=== PATIENT | male | born 1950 | race Caucasian/White ===

== ENCOUNTER 2017-08-29 16:15 | Inpatient (IN) ==
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
[2017-08-29] MEDS ORDERED: Piperacillin/Tazobactam 3.375 GM in 0.9 % Sodium Chloride Mini Bag 100 ML IVPB ONE (16:51)
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
[2017-08-29 17:39] LABS: Basophils % 0.5 %; Eosinophils # 0.4 K/mcL (0.0-0.6); Eosinophils % 4.4 %; Hematocrit 37.1 % (37.5-50.1); Immature Granulocytes % 0.3 % (0-4); Lymphocytes # 1.3 K/mcL (0.6-4.6); Lymphocytes % 14.9 %; Mean Corpuscular Hemoglobin 30.5 pg (28.0-33.3); Mean Corpuscular Volume 87.1 fL (83.0-100.0); Mean Platelet Volume 9.8 fL (9.4-12.4); Monocytes # 0.6 K/mcL (0.0-1.3); Monocytes % 6.3 %; Neutrophils # 6.4 K/mcL (1.6-8.9); Platelet Count 225 K/mcL (140-400); Red Blood Count 4.26 M/mcL (4.19-5.50); Red Cell Distribution Width 11.5 % (11.5-14.5); Segmented Neutrophils % 73.6 %
[2017-08-29 17:45] LABS: INR 1.1; Prothrombin Time 12.1 Seconds (9.4-12.1)
[2017-08-29 17:48] LABS: Activated Partial Thrombo Time 27.9 Seconds (26.0-36.0)
[2017-08-29 18:03] LABS: BUN/Creatinine Ratio 30 (6-26); Blood Urea Nitrogen 16 mg/dL (8-23); Carbon Dioxide 23 mEq/L (23-29); Chloride 102 mEq/L (98-107); Glucose 127 mg/dL (70-105); Osmolality,Calculated 279 (280-300); Potassium 4.2 mEq/L (3.5-5.1); Sodium 133 mEq/L (136-145); eGFR For African Americans > 60 (> 60); eGFR For Non-African Americans > 60 (> 60)
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
[2017-08-29] MEDS ORDERED: Naloxone 0.4 MG/ML INJ IVP PRN (21:46)
[2017-08-30] MEDS: 0.9 % Sodium Chloride 1,000 ML IVC SCH ×2 (00:14→11:01)
[2017-08-30] MEDS: Piperacillin/Tazobactam 3.375 GM in 0.9 % Sodium Chloride Mini Bag 100 ML IVPB SCH ×2 (00:14→09:01)
[2017-08-30 05:02] LABS: Basophils % 0.2 %; Eosinophils # 0.4 K/mcL (0.0-0.6); Hematocrit 35.3 % (37.5-50.1); Hemoglobin 12.6 g/dL (12.9-16.9); Immature Granulocytes % 0.5 % (0-4); Lymphocytes # 1.1 K/mcL (0.6-4.6); Lymphocytes % 12.9 %; Mean Corpuscular HGB Conc 35.7 g/dL (31.6-35.5); Mean Corpuscular Hemoglobin 31.4 pg (28.0-33.3); Mean Platelet Volume 9.9 fL (9.4-12.4); Monocytes # 0.4 K/mcL (0.0-1.3); Monocytes % 5.2 %; Neutrophils # 6.2 K/mcL (1.6-8.9); Platelet Count 218 K/mcL (140-400); Red Blood Count 4.01 M/mcL (4.19-5.50); Red Cell Distribution Width 11.2 % (11.5-14.5); Segmented Neutrophils % 76.2 %
[2017-08-30 05:11] LABS: Bilirubin,Urine Negative (Negative); Blood,Urine Negative (Negative); Clarity,Urine Clear (Clear); Color,Urine Yellow (Yellow); Glucose,Urine (UA) 100 mg/dL (Normal); Ketones,Urine Negative (Negative); Leukocyte Esterase,Urine Negative (Negative); Nitrite,Urine Negative (Negative); PH,Urine 6.5 pH Units (5.0-8.0); Protein,Urine Negative (Neg-Trace); Specific Gravity,Urine 1.023 (1.010-1.025); Urobilinogen,Urine Normal (Normal)
[2017-08-30 05:22] LABS: Alanine Aminotransferase 14 Units/L (7-52); Albumin 3.2 g/dL (3.5-5.7); Alkaline Phosphatase 54 Units/L (34-104); Aspartate Amino Transferase 10 Units/L (13-39); BUN/Creatinine Ratio 24 (6-26); Bilirubin,Total 0.6 mg/dL (0.3-1.0); Blood Urea Nitrogen 14 mg/dL (8-23); Calcium 8.6 mg/dL (8.6-10.3); Carbon Dioxide 23 mEq/L (23-29); Chloride 103 mEq/L (98-107); Chol/HDL Ratio 3.1 (0-4.9); Cholesterol 138 mg/dL (< 200); Globulin 3.1 g/dL (2.4-3.5); Glucose 143 mg/dL (70-105); HDL Cholesterol 44 mg/dL (40-59); LDL Cholesterol,Calculated 75 mg/dL (0-99); Magnesium 1.9 mg/dL (1.6-2.6); Osmolality,Calculated 281 (280-300); Phosphorous 3.4 mg/dL (2.7-4.5); Potassium 4.1 mEq/L (3.5-5.1); Sodium 134 mEq/L (136-145); Total Protein 6.3 g/dL (6.4-8.9); Triglycerides 93 mg/dL (< 150); eGFR For African Americans > 60 (> 60); eGFR For Non-African Americans > 60 (> 60)
[2017-08-30] MEDS ORDERED: Dextrose Gel 15 GM/37.5 ML TUBE PO PRN ×6 (06:27→23:28)
[2017-08-30] MEDS ORDERED: D5% in Water 1,000 ML IVC PRN ×3 (06:27→23:28)
[2017-08-30] MEDS ORDERED: *HR* Dextrose 50 % in Water (Syg) 50 ML SYRINGE IVP PRN ×3 (06:27→23:28)
[2017-08-30] MEDS ORDERED: Insulin LISPRO 300 UNITS/3 ML VIAL SQ SCH ×3 (07:30→21:00)
--- NOTE | 2017-08-30 10:46 | Internal Med Progress Note ---
Date of Encounter: 08/30/17 Time of Encounter: 10:42 - Assessment and plan (1) Osteomyelitis Current Visit: Yes Status: Acute Assessment and plan: ASSESSMENT: - Fing pain due to osteo-myelitis as seen on PLAN: -Blood cx x 2 - follow up -Tylenol 650 mg PO q 4-6 hr PRN pain/fever - Possible for surgery/amputation today. - Continue Vancomycin and Zosyn. Consider ID consult post-op. - Patient denies CP, SOB, n/v, diaphresis, numbness tingling. - Stress test recently on 08/26/17 was negative for ischemia, EF was 49% - Based on recent recommendations of patient being asymptomatic, he is clear for surgery. Qualifiers: Osteomyelitis type: unspecified type Osteomyelitis location: hand Laterality: right Qualified Code(s): M86.9 - Osteomyelitis, unspecified (2) Anemia Current Visit: Yes Status: Acute Assessment and plan: Stable Qualifiers: Anemia type: unspecified type Qualified Code(s): D64.9 - Anemia, unspecified (3) Hypertension Current Visit: Yes Status: Acute Assessment and plan: Continue home medications when patient tolerating diet. Qualifiers: Hypertension type: essential hypertension Qualified Code(s): I10 - Essential (primary) hypertension (4) Hyperlipidemia Current Visit: Yes Status: Acute Assessment and plan: we will continue home med when patient tolerating PO Qualifiers: Hyperlipidemia type: unspecified Qualified Code(s): E78.5 - Hyperlipidemia , unspecified (5) Diabetes Current Visit: Yes Status: Acute Assessment and plan: ISS while NPO Qualifiers: Diabetes mellitus type: type 2 Diabetes mellitus jail insulin use: unspecified jail insulin use status Diabetes mellitus complication status : with unspecified complications Qualified Code(s): E11.8 - Type 2 diabetes mellitus with unspecified complications (6) DVT prophylaxis Current Visit: Yes Status: Acute Assessment and plan: SCD - Time Spent With Patient Total time spent is greater than 50% in coordination of care (as documented) at patient's floor/unit and/or counseling patient: - Subjective Interval history: No acute events Patient states finger pain is 6/10. Denies fevers/chills, n/v - Constitutional Vitals: Temp Pulse Resp BP Pulse Ox 98.2 F 59 15 127/69 97 08/30/17 10:18 08/30/17 10:18 08/30/17 10:18 08/30/17 10:18 08/30/17 10:18 General appearance: Present: A&O X 3 Exam: - Head Head exam: Present: atraumatic, normocephalic - Respiratory Respiratory exam: Present: CTAB. Absent: accessory muscle use, rales, rhonchi, wheezes - Cardiovascular Cardiovascular exam: Present: RRR, +S1, +S2. Absent: diastolic murmur, gallop, rubs, systolic murmur - GI/Abdominal GI/Abdominal exam: Present: normal bowel sounds, soft, no peritoneal signs. Absent: distended, tenderness - Extremities Exam Extremities exam: Present: warm, radial pulses palpable and symmetrical. Absent : calf tenderness, cyanotic, pedal edema Right middle finger has clean dressing, limited exam, hand edema noted, no discharge. Internal Medicine: Result - Labs CBC & Chem 7: 08/30/17 04:49 08/30/17 04:49 Labs: Short CBC 08/30/17 Range/Units 04:49 WBC 8.2 (4.3-11.1) K/mcL Hgb 12.6 L (12.9-16.9) g/dL Hct 35.3 L (37.5-50.1) % Plt Count 218 (140-400) K/mcL Neutrophils # 6.2 (1.6-8.9) K/mcL BMP 08/30/17 04:49 Sodium 134 L Potassium 4.1 Chloride 103 Carbon Dioxide 23 BUN 14 Creatinine 0.58 L Glucose 143 H Calcium 8.6 Liver Function 08/30/17 Range/Units 04:49 Total Bilirubin 0.6 (0.3-1.0) mg/dL AST 10 L (13-39) Units/L ALT 14 (7-52) Units/L Alkaline Phosphatase 54 (34-104) Units/L Albumin 3.2 L (3.5-5.7) g/dL Urine 08/30/17 Range/Units 04:56 Urine Color Yellow (Yellow) Urine Clarity Clear (Clear) Urine pH 6.5 (5.0-8.0) pH Units Ur Specific [place] 1.023 (1.010-1.025) Urine Protein Negative (Neg-Trace) mg/dL Urine Glucose (UA) 100 H (Normal) mg/dL - ABG Interpretation ABG results: PT/INR, D-dimer PT 12.1 Seconds (9.4-12.1) 08/29/17 17:23 Consult Discharge Plan - Plan Referrals: [facility] [Outside]
[2017-08-30 11:02] LABS: Estimated Average Glucose 143 mg/dl; Hemoglobin A1C 6.6 %
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
[2017-08-30 14:48] LABS: Acinetobacter baumannii by PCR Not Detected (Not Detect); Candida albicans by PCR Not Detected (Not Detect); Candida glabrata by PCR Not Detected (Not Detect); Candida krusei by PCR Not Detected (Not Detect); Candida parapsilosis by PCR Not Detected (Not Detect); Candida tropicalis by PCR Not Detected (Not Detect); Enterococcus by PCR Not Detected (Not Detect); Escherichia coli by PCR Not Detected (Not Detect); Klebsiella oxytoca by PCR Not Detected (Not Detect); Klebsiella pneumoniae by PCR Not Detected (Not Detect); Pseudomonas aeruginosa by PCR Not Detected (Not Detect); Serratia marcescens by PCR Not Detected (Not Detect); Staphylococcus aureus by PCR ***DETECTED*** (Not Detect); Streptococcus agalactiae(B)PCR Not Detected (Not Detect); Streptococcus by PCR Not Detected (Not Detect); Streptococcus pneumoniae PCR Not Detected (Not Detect); Streptococcus pyogenes (A) PCR Not Detected (Not Detect); blaKPC Carbapenem-Resist Gene Not Detected (Not Detect); mecA Methicillin-Resist Gene Not Detected (Not Detect); vanA/B Vancomycin-Resist Genes Not Detected (Not Detect)
--- NOTE | 2017-08-30 16:39 | Anesthesia Evaluation PreOp ---
Date of Encounter: 08/30/17 Time of Encounter: 16:33 - Past History Planned Operation: Right Middle finger Amputation Cardiac History: Denies any Significant Hx (coronary artery disease, diabetes, GERD, hyperlipidemia, hypertension, other Psychiatric history: no psych history - Past Surgical History Surgical History: colostomy - Social History Smoking Status: Never smoker Alcohol use: none Drug use: none), HTN, Hyperlipidemia, Cardiac Stent (x2 05/2016) Pulmonary History: Denies Any Significant HX TEACHER History: Denies Any Significant HX Other Medical History: Diabetes Type II, GERD, Other (Diabetic Peripheral Neuropathy) Anesthesia History: Past Anesthesia (Colostomy) Alcohol Use: none Drug use: none Medications and Allergies Aspirin [Lo-Dose Aspirin EC] 81 mg PO DAILY 08/29/17 [History] Cholecalciferol (D-3) [Vitamin D] 1,000 unit PO DAILY 08/29/17 [History] Clopidogrel [Plavix] 75 mg PO DAILY 08/29/17 [History] Gabapentin [Neurontin] 300 mg PO TID 08/29/17 [History] Lisinopril [Zestril] 40 mg PO DAILY 08/29/17 [History] Metoprolol [Lopressor] 25 mg PO DAILY 08/29/17 [History] Simvastatin [Zocor] 80 mg PO HS 08/29/17 [History] metFORMIN [Glucophage] 1,000 mg PO BIDWM 08/29/17 [History] 3 Allergy/AdvReac Type Severity Reaction Status Date / Time atorvastatin Allergy Rash Verified 08/29/17 17:09 - Meds/Allergy Pre-op Review Medications Reviewed: Yes Allergies Reviewed: Yes Beta Blockers on Current Med List: No Anesthesia Results - Labs 08/30/17 04:49 08/30/17 04:49 08/26/17 Stress EF-49% No ischemia - Imaging EKG: report reviewed (NSR on stress) Anesthesia Exam Vital Signs/O2 Sat, Most Current Temp Pulse Resp BP Pulse Ox 99.1 F 72 15 134/70 97 08/30/17 14:07 08/30/17 14:07 08/30/17 14:07 08/30/17 14:07 08/30/17 14:07 NPO (# of Hours): > 8 hrs Pain Scale: 0 Pain Scale Used: Numeric (1 - 10) - HEENT Pupil (Motor): Pupils equal, EOMI Mallampati: II Teeth: Missing Denture Type: Upper: Complete Oral Opening: Greater than 3 - TEACHER LOC: Oriented TEACHER Motor: Normal RUE, Normal LUE, Normal RLE, Normal LLE, Normal Face TEACHER Sensory: Normal: RUE, LUE, RLE, LLE, Face - Cardiac Rhythm: Regular Murmur: None JVD: No Carotid Bruit: No - Pulmonary Breath Sounds: bilateral Clear Respiratory Effort: Symmetrical Anesthesia Assess/Plan ASA Score: 3 Modified [place]ourt Scale for Level of Consciousness: Cooperative, oriented, and tranquil Anesthetic Plan: General Autologous Blood: Yes Monitoring Plan: Standard Monitors Recovery Plan: PACU
[2017-08-30] MEDS ORDERED: *HR* FentaNYL (PF) 100 MCG/2 ML VIAL ONE ×2 (16:54→18:01)
[2017-08-30] MEDS ORDERED: Dexamethasone 4 MG/ML VIAL ONE (16:54)
[2017-08-30] MEDS ORDERED: Ondansetron 4 MG/2 ML VIAL ONE (16:54)
[2017-08-30] MEDS ORDERED: Lidocaine -MPF 2% 2 ML VIAL ONE (16:54)
[2017-08-30] MEDS ORDERED: *HR* Midazolam HCl 2 MG/2 ML VIAL ONE (16:55)
[2017-08-30] MEDS ORDERED: *HR* Propofol 200 MG/20 ML VIAL IVP ONE (16:55)
[2017-08-30] MEDS ORDERED: Lidocaine -MPF 4% 5 ML AMPUL ONE (16:58)
--- NOTE | 2017-08-30 17:02 | Electrocardiograph Report ---
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
[2017-08-30] MEDS ORDERED: *HR* OxyCODONE Immed Rel 5 MG TABLET PO PRN (18:03)
[2017-08-30] MEDS ORDERED: *HR* HYDROmorphone (PF) 1 MG/ML SYRINGE IVP PRN (18:03)
[2017-08-30] MEDS ORDERED: Ringers Solution, Lactated 1,000 ML IVC SCH (18:15)
[2017-08-30] MEDS ORDERED: *HR* Metoprolol 5 MG/5 ML VIAL IVP ONE (18:16)
--- NOTE | 2017-08-30 18:35 | Anesthesia Evaluation Post Op ---
Date of Encounter: 08/30/17 Time of Encounter: 18:34 - Vital Signs Vital Signs: Vital Signs/O2 Sat, Most Current Temp Pulse Resp BP Pulse Ox 97.2 F L 58 12 138/69 99 08/30/17 18:11 08/30/17 18:31 08/30/17 18:31 08/30/17 18:31 08/30/17 18:31 - Lungs Lungs: Clear Ascult./Percussion - Airway Airway: Non-obstructed - Cardiovascular Regular Rate - Mental Status Mental Status: Alert & Oriented, Answers Appropriately - Pain Pain Scale: 0 Pain Scale used: Numeric (1 - 10) - Nausea Vomiting Nausea Vomiting: Not Present - Hydration Hydration: NPO, Has not voided - Discharge PostOp Status: Transfer Patient to floor
[2017-08-30] MEDS ORDERED: Naloxone 0.4 MG/ML INJ IVP PRN (19:26)
[2017-08-30] MEDS: *HR* OxyCODONE Immed Rel 5 MG TABLET PO PRN (21:37)
[2017-08-30] MEDS: Gabapentin 300 MG CAPSULE PO SCH (21:37)
[2017-08-31] MEDS ORDERED: Insulin LISPRO 300 UNITS/3 ML VIAL SQ SCH
[2017-08-31] MEDS: Piperacillin/Tazobactam 3.375 GM in 0.9 % Sodium Chloride Mini Bag 100 ML IVPB SCH ×3 (01:13→16:30)
[2017-08-31 05:47] LABS: Basophils % 0.3 %; Eosinophils # 0.5 K/mcL (0.0-0.6); Eosinophils % 6.1 %; Hematocrit 37.8 % (37.5-50.1); Hemoglobin 13.1 g/dL (12.9-16.9); Immature Granulocytes % 0.4 % (0-4); Lymphocytes # 0.8 K/mcL (0.6-4.6); Lymphocytes % 10.4 %; Mean Corpuscular HGB Conc 34.7 g/dL (31.6-35.5); Mean Corpuscular Hemoglobin 30.6 pg (28.0-33.3); Mean Corpuscular Volume 88.3 fL (83.0-100.0); Mean Platelet Volume 9.8 fL (9.4-12.4); Monocytes # 0.4 K/mcL (0.0-1.3); Monocytes % 4.9 %; Neutrophils # 5.9 K/mcL (1.6-8.9); Platelet Count 251 K/mcL (140-400); Red Blood Count 4.28 M/mcL (4.19-5.50); Red Cell Distribution Width 11.5 % (11.5-14.5); Segmented Neutrophils % 77.9 %
[2017-08-31 06:04] LABS: BUN/Creatinine Ratio 19 (6-26); Blood Urea Nitrogen 13 mg/dL (8-23); C-Reactive Protein 72 mg/L (Less than 10); Calcium 8.4 mg/dL (8.6-10.3); Carbon Dioxide 24 mEq/L (23-29); Chloride 102 mEq/L (98-107); Glucose 167 mg/dL (70-105); Osmolality,Calculated 278 (280-300); Potassium 4.4 mEq/L (3.5-5.1); Sodium 132 mEq/L (136-145); eGFR For African Americans > 60 (> 60); eGFR For Non-African Americans > 60 (> 60)
[2017-08-31] MEDS: Insulin LISPRO 300 UNITS/3 ML VIAL SQ SCH ×4 (07:39→21:13)
[2017-08-31] MEDS ORDERED: *HR* Metformin 500 MG TABLET PO SCH (08:00)
[2017-08-31] MEDS: Cholecalciferol (D-3) 1,000 UNIT TABLET PO SCH (10:14)
[2017-08-31] MEDS: Aspirin Enteric Coated 81 MG Tablet PO SCH (10:15)
[2017-08-31] MEDS: Gabapentin 300 MG CAPSULE PO SCH ×3 (10:15→20:48)
[2017-08-31] MEDS: Lisinopril 20 MG TABLET PO SCH (10:15)
[2017-08-31] MEDS: *HR* OxyCODONE Immed Rel 5 MG TABLET PO PRN (10:17)
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
--- NOTE | 2017-08-31 12:59 | Orthopedics Progress Note ---
Date of Encounter: 08/31/17 Time of Encounter: 12:20 - Assessment and Plan (1) Osteomyelitis Current Visit: Yes Status: Acute POD#1 - s/p right long finger amputation 08/30/17 Leave postop dressings intact until follow up visit in office at [facility]. Patient did have 1/2 positive blood cultures with staph aureus ID following for antibiotic guidance. Continue to elevate hand, ROM as tolerated. Will follow up with Sheron Harmon PA-C in [facility] office on on 09/07/17 at 1:00pm. Qualifiers: Osteomyelitis type: unspecified type Osteomyelitis location: hand Laterality: right Qualified Code(s): M86.9 - Osteomyelitis, unspecified Subjective Principal diagnosis: POD#1 s/p right long finger amputation 08/30/17 Interval history: Patient doing well today with no concerns at this time. Minimal pain to surgical hand. Objective Vital signs: Vital Signs Temp Pulse Resp BP Pulse Ox 08/31/17 09:00 98.0 F 69 16 150/76 97 08/31/17 06:56 98.3 F 70 16 127/76 96 08/31/17 04:22 100.1 F H 72 16 137/67 94 08/30/17 21:50 71 138/69 98 08/30/17 21:30 96 08/30/17 20:50 69 137/66 98 08/30/17 19:50 60 145/68 98 08/30/17 19:20 73 138/69 96 08/30/17 18:50 97.9 F 62 18 150/77 96 08/30/17 18:41 97.5 F L 58 12 139/72 99 08/30/17 18:31 58 12 138/69 99 08/30/17 18:21 58 12 141/68 98 08/30/17 18:11 97.2 F L 64 14 140/69 98 08/30/17 14:07 99.1 F 72 15 134/70 97 Intake and Output 08/30/17 08/31/17 08/31/17 23:59 07:59 15:59 Intake Total 100 / 100 480 / 480 Output Total 460 / 460 700 / 700 Balance -460 / -460 -600 / -600 480 / 480 Intake: IV Fluids 100 / 100 Zosyn 3.375 GM In 0.9 % Sodium 100 / 100 Chloride (Mini-Bag +) 100 ML @ 25 mls/hr IVPB Q8HR [facility] Rx#: [id number] Oral 0 / 0 480 / 480 Output: Urine 450 / 450 700 / 700 Estimated Blood Loss Other: Meal Breakfast Percent of Meal Consumed 100% Weight 100.3 kg Blood Glucose* 112 138 191 Patient Weight 08/31/17 23:59 Weight 100.3 kg Incision: clean and dry (postop dressings intact to right hand. good motion of exposed fingers with brisk cap refill, continued decreased sensation to fingers) - Labs CBC & BMP: 08/31/17 05:20 08/31/17 05:20 Labs: Abnormal lab results ESR 53 mm/hr (0-10) H 08/31/17 05:20 Sodium 132 mEq/L (136-145) L 08/31/17 05:20 Creatinine 0.67 mg/dL (0.70-1.30) L 08/31/17 05:20 Glucose 167 mg/dL (70-105) H 08/31/17 05:20 POC Glucose 191 mg/dL (70-99) H 08/31/17 12:09 Hemoglobin A1c 6.6 % (-5.6) H 08/30/17 06:27 Calculated Osmolality 278 (280-300) L 08/31/17 05:20 Calcium 8.4 mg/dL (8.6-10.3) L 08/31/17 05:20 AST 10 Units/L (13-39) L 08/30/17 04:49 C-Reactive Protein 72 mg/L (Less than 10) H 08/31/17 05:20 Serum Total Protein 6.3 g/dL (6.4-8.9) L 08/30/17 04:49 Albumin 3.2 g/dL (3.5-5.7) L 08/30/17 04:49 Albumin/Globulin Ratio 1.0 (1.1-2.2) L 08/30/17 04:49 Urine Glucose (UA) 100 mg/dL (Normal) H 08/30/17 04:56 Staphylococcus sp PCR DETECTED (Not Detect) A 08/29/17 17:20 Staph aureus (PCR) DETECTED (Not Detect) A 08/29/17 17:20 - VTE Documentation of Mechanical Device: Intermittent pneumatic compression device Consult Discharge Plan - Plan Referrals: [facility] [Outside] Sheron Harmon, PAC [Physician Accountant Property] - 09/07/17 1:00 pm
--- NOTE | 2017-08-31 16:33 | Internal Med Progress Note ---
Date of Encounter: 08/31/17 Time of Encounter: 16:31 - Assessment and plan (1) Osteomyelitis Current Visit: Yes Status: Acute Assessment and plan: OM secondary to infection of right long finger. S/p amputation on 08/30. Patient clinically doing well. Vital signs are stable and he is afebrile. He has no leukocytosis. 08/29 blood cultures and Repeat blood cultures from 08/30 also showed GPC - note these samples were obtained prior to finger amputation. Will d/w ID at what point to repeat blood cultures. - ID consulted, recommendations appreciated. - Follow-up sensitivities. - Continue Ancef 2,000 mg Q8H. Qualifiers: Osteomyelitis type: unspecified type Osteomyelitis location: hand Laterality: right Qualified Code(s): M86.9 - Osteomyelitis, unspecified (2) Anemia Current Visit: Yes Status: Acute Assessment and plan: Stable Qualifiers: Anemia type: unspecified type Qualified Code(s): D64.9 - Anemia, unspecified (3) Hypertension Current Visit: Yes Status: Chronic Assessment and plan: Continue home medications. Qualifiers: Hypertension type: essential hypertension Qualified Code(s): I10 - Essential (primary) hypertension (4) Hyperlipidemia Current Visit: Yes Status: Chronic Assessment and plan: Continue home medications. 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 Denies fevers/chills, n/v. I was recently informed by nursing that the repeat set of blood cultures positive for GPC. - Constitutional Vitals: Temp Pulse Resp BP Pulse Ox 98.3 F 69 15 108/56 97 08/31/17 14:25 08/31/17 14:25 08/31/17 14:25 08/31/17 14:25 08/31/17 14:25 General appearance: Present: A&O X 3 - Head Head exam: Present: atraumatic, normocephalic - Eye Eye exam: Present: PERRL, conjuntiva pink, sclera anicteric Pupils: Present: PERRL - Neck Neck exam general surgery: Present: supple, trachea midline. Absent: lymphadenopathy - Respiratory Respiratory exam: Present: CTAB. Absent: accessory muscle use, rales, rhonchi, wheezes - Cardiovascular Cardiovascular exam: Present: RRR, +S1, +S2. Absent: diastolic murmur, gallop, rubs, systolic murmur - GI/Abdominal GI/Abdominal exam: Present: normal bowel sounds, soft, no peritoneal signs. Absent: distended, tenderness - Extremities Exam Extremities exam: Present: warm, radial pulses palpable and symmetrical. Absent : calf tenderness, cyanotic, pedal edema - Neurological Exam Neurological exam: Present: CN II-XII intact, oriented X3, no focal deficits. Absent: pronater drift, facial droop, speech deficit - Skin Skin exam: Present: dry, intact - Other Additional findings: Post op dressing clean, dry, intact. Sensation of other fingers normal. Internal Medicine: Result - Labs CBC & Chem 7: 08/31/17 05:20 08/31/17 05:20 Labs: Short CBC 08/31/17 Range/Units 05:20 WBC 7.6 (4.3-11.1) K/mcL Hgb 13.1 (12.9-16.9) g/dL Hct 37.8 (37.5-50.1) % Plt Count 251 (140-400) K/mcL Neutrophils # 5.9 (1.6-8.9) K/mcL BMP 08/31/17 05:20 Sodium 132 L Potassium 4.4 Chloride 102 Carbon Dioxide 24 BUN 13 Creatinine 0.67 L Glucose 167 H Calcium 8.4 L - ABG Interpretation ABG results: PT/INR, D-dimer PT 12.1 Seconds (9.4-12.1) 08/29/17 17:23 - VTE Documentation of Mechanical Device: Intermittent pneumatic compression device Consult Discharge Plan - Plan Referrals: [facility] [Outside] Sheron Harmon, PAC [Physician Hot Dimpling Machine Operator] - 09/07/17 1:00 pm
[2017-08-31] MEDS: ceFAZolin 2,000 MG in 0.9 % Sodium Chloride 100 ML IVPB SCH (16:55)
--- NOTE | 2017-08-31 20:19 | Electrocardiograph Report ---
[address] [address] Test Date: 2017-08-30 Pat Name: Julian Figueroa Department: 115 Room: 3A43 Gender: Testing Tech: RUIZ : 1950 Requested By: Cecilia Cowart Order Number: [id number] Reading MD: Preston Amezquita Measurements Intervals [place] Rate: 62 P: 76 MI: 195 QRS: 42 QRSD: 113 T: 35 QT: 404 QTc: 409 Interpretive Statements SINUS RHYTHM MINIMAL VOLTAGE CRITERIA FOR LVH, CONSIDER NORMAL VARIANT Electronically Signed On 08-31-2017 20:18:03 EDT by Preston Amezquita
[2017-09-01] MEDS: ceFAZolin 2,000 MG in 0.9 % Sodium Chloride 100 ML IVPB SCH ×3 (00:27→17:36)
[2017-09-01 08:15] LABS: Basophils % 0.2 %; Eosinophils # 0.6 K/mcL (0.0-0.6); Eosinophils % 7.1 %; Hematocrit 38.3 % (37.5-50.1); Hemoglobin 13.4 g/dL (12.9-16.9); Immature Granulocytes % 0.6 % (0-4); Mean Corpuscular Hemoglobin 31.2 pg (28.0-33.3); Mean Corpuscular Volume 89.1 fL (83.0-100.0); Mean Platelet Volume 9.9 fL (9.4-12.4); Monocytes # 0.4 K/mcL (0.0-1.3); Monocytes % 5.2 %; Neutrophils # 6.2 K/mcL (1.6-8.9); Nucleated Red Blood Cells 0.2 /100 WBC (0); Platelet Count 285 K/mcL (140-400); Red Cell Distribution Width 11.4 % (11.5-14.5); Segmented Neutrophils % 74.9 %
[2017-09-01] MEDS ORDERED: Aminoglycoside Consult 1 EACH MC ONE (09:12)
[2017-09-01] MEDS: Insulin LISPRO 300 UNITS/3 ML VIAL SQ SCH ×4 (09:20→20:58)
[2017-09-01] MEDS: Aspirin Enteric Coated 81 MG Tablet PO SCH (09:23)
[2017-09-01] MEDS: Gabapentin 300 MG CAPSULE PO SCH ×3 (09:23→20:57)
[2017-09-01] MEDS: Cholecalciferol (D-3) 1,000 UNIT TABLET PO SCH (09:24)
[2017-09-01] MEDS: Lisinopril 20 MG TABLET PO SCH (09:24)
[2017-09-01 10:08] LABS: BUN/Creatinine Ratio 28 (6-26); Blood Urea Nitrogen 18 mg/dL (8-23); Calcium 8.9 mg/dL (8.6-10.3); Carbon Dioxide 23 mEq/L (23-29); Chloride 103 mEq/L (98-107); Glucose 159 mg/dL (70-105); Osmolality,Calculated 281 (280-300); Potassium 4.3 mEq/L (3.5-5.1); Sodium 133 mEq/L (136-145); eGFR For African Americans > 60 (> 60); eGFR For Non-African Americans > 60 (> 60)
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
--- NOTE | 2017-09-01 15:14 | Orthopedics Progress Note ---
Date of Encounter: 09/01/17 Time of Encounter: 02:40 - Assessment and Plan (1) Osteomyelitis Current Visit: Yes Status: Acute POD#2 - s/p right long finger amputation 08/30/17 Leave postop dressings intact until follow up visit in office at [facility]. Second set of blood cultures positive with staph aureus. Patient will be here until at least 09/06/17 due to holiday and he must have negative culture x 48hrs before PICC placement. ID following for antibiotic guidance. Patient chose IV cefazolin q 8 hrs upon discharge. Continue to elevate hand, ROM as tolerated. No heavy lifting Will follow up with Sheron Harmon PA-C in [facility] office on on 09/07/17 at 1: 00pm. If he is still admitted on 09/06/17 will plan to do dressing change at that time. Qualifiers: Osteomyelitis type: unspecified type Osteomyelitis location: hand Laterality: right Qualified Code(s): M86.9 - Osteomyelitis, unspecified Subjective Principal diagnosis: POD#2 s/p right long finger amputation 08/30/17 Interval history: Patient doing well today with no concerns at this time. Minimal pain to surgical hand. States he has been working on moving his fingers. Denies any new drainage or issues with dressings. Objective Vital signs: Vital Signs Temp Pulse Resp BP Pulse Ox 09/01/17 11:35 97.6 F 63 16 138/72 97 09/01/17 07:29 98.3 F 77 14 114/72 98 09/01/17 05:47 98.1 F 60 17 118/68 96 08/31/17 19:46 99.2 F 63 15 110/58 96 Intake and Output 08/31/17 09/01/17 09/01/17 23:59 07:59 15:59 Intake Total 260 / 260 100 / 100 1300 / 1300 Output Total 400 / 400 500 / 500 Balance -140 / -140 -400 / -400 1300 / 1300 Intake: IV Fluids 200 / 200 100 / 100 100 / 100 Zosyn 3.375 GM In 0.9 % Sodium 100 / 100 Chloride (Mini-Bag +) 100 ML @ 25 mls/hr IVPB Q8HR [facility] Rx#: [id number] Ancef 2,000 MG In 0.9 % Sodium 100 / 100 100 / 100 100 / 100 Chloride 100 ML @ 200 mls/hr IVPB Q8H [facility] Rx#:[id number] Oral 60 / 60 1200 / 1200 Output: Urine 400 / 400 500 / 500 Other: Meal Lunch Percent of Meal Consumed 100% # Voids 1 Weight 99.6 kg Blood Glucose* 190 255 Patient Weight 09/01/17 23:59 Weight 99.6 kg Incision: draining (postop dressings intact with minimal visible drainage around incision site no change from yesterday likely from directly after surgery , good motion of other digits, minimal swelling) - Labs CBC & BMP: 09/01/17 07:42 09/01/17 07:42 Labs: Abnormal lab results RDW 11.4 % (11.5-14.5) L 09/01/17 07:42 Nucleated RBCs/100 WBC 0.2 /100 WBC (0) H 09/01/17 07:42 ESR 53 mm/hr (0-10) H 08/31/17 05:20 Sodium 133 mEq/L (136-145) L 09/01/17 07:42 Creatinine 0.64 mg/dL (0.70-1.30) L 09/01/17 07:42 BUN/Creatinine Ratio 28 (6-26) H 09/01/17 07:42 Glucose 159 mg/dL (70-105) H 09/01/17 07:42 POC Glucose 255 mg/dL (70-99) H 09/01/17 11:32 Hemoglobin A1c 6.6 % (-5.6) H 08/30/17 06:27 AST 10 Units/L (13-39) L 08/30/17 04:49 C-Reactive Protein 72 mg/L (Less than 10) H 08/31/17 05:20 Serum Total Protein 6.3 g/dL (6.4-8.9) L 08/30/17 04:49 Albumin 3.2 g/dL (3.5-5.7) L 08/30/17 04:49 Albumin/Globulin Ratio 1.0 (1.1-2.2) L 08/30/17 04:49 Urine Glucose (UA) 100 mg/dL (Normal) H 08/30/17 04:56 Staphylococcus sp PCR DETECTED (Not Detect) A 08/29/17 17:20 Staph aureus (PCR) DETECTED (Not Detect) A 08/29/17 17:20 - VTE Documentation of Mechanical Device: Intermittent pneumatic compression device Consult Discharge Plan - Plan Referrals: [facility] [Outside] Sheron Harmon, PAC [Physician Automatic Beam Warper Tender] - 09/07/17 1:00 pm Prescriptions: ceFAZolin [Ancef] 2,000 mg IV Q8H #14 vial
--- NOTE | 2017-09-01 15:49 | Internal Med Progress Note ---
Date of Encounter: 09/01/17 Time of Encounter: 15:45 - Assessment and plan (1) Bacteremia Current Visit: Yes Status: Acute Assessment and plan: Likely due to osteomyelitis Due to MSSA seen in blood cultuers 08/29 and 08/30. - Repeat blood cultures today - Continue cefazolin - Need blood cultures negative for 48 hours prior to picc placement - likely 6 weeks of antibiotics - TTE ordered for today to rule out other source of infection - LAURA prior to discharge if TTE is negative (2) Osteomyelitis Current Visit: Yes Status: Acute Assessment and plan: OM secondary to infection of right long finger. S/p amputation on 08/30. Patient clinically doing well. Vital signs are stable and he is afebrile. He has no leukocytosis. 08/29 blood cultures and Repeat blood cultures from 08/30 also showed GPC - note these samples were obtained prior to finger amputation. Will d/w ID at what point to repeat blood cultures. - ID consulted, recommendations appreciated. - Follow-up sensitivities. - Continue Ancef 2,000 mg Q8H. - repeat blood cultures obtained today Qualifiers: Osteomyelitis type: unspecified type Osteomyelitis location: hand Laterality: right Qualified Code(s): M86.9 - Osteomyelitis, unspecified (3) Anemia Current Visit: Yes Status: Acute Assessment and plan: Stable Qualifiers: Anemia type: unspecified type Qualified Code(s): D64.9 - Anemia, unspecified (4) Hypertension Current Visit: Yes Status: Chronic Assessment and plan: Continue home medications. Qualifiers: Hypertension type: essential hypertension Qualified Code(s): I10 - Essential (primary) hypertension (5) Hyperlipidemia Current Visit: Yes Status: Chronic Assessment and plan: Continue home medications. Qualifiers: Hyperlipidemia type: unspecified Qualified Code(s): E78.5 - Hyperlipidemia , unspecified (6) Diabetes Current Visit: Yes Status: Acute Assessment and plan: ISS AC and HS Diabetic diet Qualifiers: Diabetes mellitus type: type 2 Diabetes mellitus ch[facility] insulin use: unspecified watermaster insulin use status Diabetes mellitus complication status : with unspecified complications Qualified Code(s): E11.8 - Type 2 diabetes mellitus with unspecified complications (7) DVT prophylaxis Current Visit: Yes Status: Acute Assessment and plan: SCD - Time Spent With Patient Total time spent is greater than 50% in coordination of care (as documented) at patient's floor/unit and/or counseling patient: - Subjective Interval history: Patient s/p finger amputation, states he is having no hand pain. Denies fevers/ chills. - Constitutional Vitals: Temp Pulse Resp BP Pulse Ox 97.6 F 63 16 138/72 97 09/01/17 11:35 09/01/17 11:35 09/01/17 11:35 09/01/17 11:35 09/01/17 11:35 General appearance: Present: A&O X 3 - Head Head exam: Present: atraumatic, normocephalic - Eye Eye exam: Present: PERRL, conjuntiva pink, sclera anicteric Pupils: Present: PERRL - Neck Neck exam general surgery: Present: supple, trachea midline. Absent: lymphadenopathy - Respiratory Respiratory exam: Present: CTAB. Absent: accessory muscle use, rales, rhonchi, wheezes - Cardiovascular Cardiovascular exam: Present: RRR, +S1, +S2. Absent: diastolic murmur, gallop, rubs, systolic murmur - GI/Abdominal GI/Abdominal exam: Present: normal bowel sounds, soft, no peritoneal signs. Absent: distended, tenderness - Extremities Exam Extremities exam: Present: warm, radial pulses palpable and symmetrical. Absent : calf tenderness, cyanotic, pedal edema Additional comments: Right hand with clean dressing. - Neurological Exam Neurological exam: Present: CN II-XII intact, oriented X3, no focal deficits. Absent: pronater drift, facial droop, speech deficit - Skin Skin exam: Present: dry, intact Internal Medicine: Result - Labs CBC & Chem 7: 09/01/17 07:42 09/01/17 07:42 Labs: Short CBC 09/01/17 Range/Units 07:42 WBC 8.3 (4.3-11.1) K/mcL Hgb 13.4 (12.9-16.9) g/dL Hct 38.3 (37.5-50.1) % Plt Count 285 (140-400) K/mcL Neutrophils # 6.2 (1.6-8.9) K/mcL BMP 09/01/17 07:42 Sodium 133 L Potassium 4.3 Chloride 103 Carbon Dioxide 23 BUN 18 Creatinine 0.64 L Glucose 159 H Calcium 8.9 - ABG Interpretation ABG results: PT/INR, D-dimer PT 12.1 Seconds (9.4-12.1) 08/29/17 17:23 - VTE Documentation of Mechanical Device: Intermittent pneumatic compression device Consult Discharge Plan - Plan Referrals: [facility] [Outside] Sheron Harmon, PAC [Physician Boring Machine Set Up Operator] - 09/07/17 1:00 pm Prescriptions: ceFAZolin [Ancef] 2,000 mg IV Q8H #14 vial
[2017-09-02] MEDS: ceFAZolin 2,000 MG in 0.9 % Sodium Chloride 100 ML IVPB SCH ×3 (00:14→18:31)
[2017-09-02 06:24] LABS: Basophils % 0.5 %; Eosinophils # 0.6 K/mcL (0.0-0.6); Eosinophils % 9.7 %; Hematocrit 35.2 % (37.5-50.1); Hemoglobin 12.3 g/dL (12.9-16.9); Immature Granulocytes % 0.5 % (0-4); Lymphocytes # 0.9 K/mcL (0.6-4.6); Lymphocytes % 14.8 %; Mean Corpuscular HGB Conc 34.9 g/dL (31.6-35.5); Mean Corpuscular Hemoglobin 31.1 pg (28.0-33.3); Mean Corpuscular Volume 88.9 fL (83.0-100.0); Monocytes # 0.4 K/mcL (0.0-1.3); Monocytes % 6.4 %; Neutrophils # 4.1 K/mcL (1.6-8.9); Platelet Count 265 K/mcL (140-400); Red Blood Count 3.96 M/mcL (4.19-5.50); Red Cell Distribution Width 11.3 % (11.5-14.5); Segmented Neutrophils % 68.1 %
[2017-09-02 06:37] LABS: BUN/Creatinine Ratio 39 (6-26); Blood Urea Nitrogen 24 mg/dL (8-23); Calcium 8.6 mg/dL (8.6-10.3); Carbon Dioxide 24 mEq/L (23-29); Chloride 105 mEq/L (98-107); Glucose 168 mg/dL (70-105); Osmolality,Calculated 286 (280-300); Potassium 4.2 mEq/L (3.5-5.1); Sodium 134 mEq/L (136-145); eGFR For African Americans > 60 (> 60); eGFR For Non-African Americans > 60 (> 60)
[2017-09-02] MEDS: Cholecalciferol (D-3) 1,000 UNIT TABLET PO SCH (08:43)
[2017-09-02] MEDS: Aspirin Enteric Coated 81 MG Tablet PO SCH (08:43)
[2017-09-02] MEDS: Gabapentin 300 MG CAPSULE PO SCH ×3 (08:43→22:30)
[2017-09-02] MEDS: Lisinopril 20 MG TABLET PO SCH (08:43)
[2017-09-02] MEDS: Insulin LISPRO 300 UNITS/3 ML VIAL SQ SCH ×4 (08:44→22:32)
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
--- NOTE | 2017-09-02 15:12 | Orthopedics Progress Note ---
Date of Encounter: 09/02/17 Time of Encounter: 13:30 - Assessment and Plan (1) Osteomyelitis Current Visit: Yes Status: Acute POD#3 - s/p right long finger amputation 08/30/17 Leave postop dressings intact until follow up visit in office at [facility]. Second set of blood cultures positive with staph aureus. Patient will be here until at least 09/06/17 due to holiday and he must have negative culture x 48hrs before PICC placement. ID following for antibiotic guidance. Patient chose IV cefazolin q 8 hrs upon discharge. Continue to elevate hand, ROM as tolerated. No heavy lifting Will follow up with Sheron Harmon PA-C in [facility] office on on 09/07/17 at 1: 00pm. If he is still admitted on 09/06/17 will plan to do dressing change at that time before his discharge. Qualifiers: Osteomyelitis type: unspecified type Osteomyelitis location: hand Laterality: right Qualified Code(s): M86.9 - Osteomyelitis, unspecified Subjective Principal diagnosis: POD#3 s/p right long finger amputation 08/30/17 Interval history: Patient doing well today with no concerns at this time. No pain to surgical hand. States he has been working on moving his fingers. Denies any new drainage or issues with dressings. Objective Vital signs: Vital Signs Temp Pulse Resp BP Pulse Ox 09/02/17 11:17 97.6 F 56 18 154/70 99 09/02/17 06:32 97.6 F 54 16 155/72 99 09/02/17 04:15 98.5 F 60 15 147/75 97 09/01/17 19:18 99.4 F 63 15 144/69 96 09/01/17 17:10 98.7 F 70 18 134/73 97 Intake and Output 09/01/17 09/02/17 09/02/17 23:59 07:59 15:59 Intake Total 580 / 580 400 / 400 600 / 600 Output Total 1025 / 1025 1250 / 1250 400 / 400 Balance -445 / -445 -850 / -850 200 / 200 Intake: IV Fluids 100 / 100 100 / 100 Ancef 2,000 MG In 0.9 % Sodium 100 / 100 100 / 100 Chloride 100 ML @ 200 mls/hr IVPB Q8H [facility] Rx#:[id number] Oral 480 / 480 300 / 300 600 / 600 Output: Urine 1025 / 1025 1250 / 1250 400 / 400 Other: Meal Dinner Lunch Percent of Meal Consumed 100% 100% # Voids 2 Weight 100.2 kg Blood Glucose* 147 171 233 Patient Weight 09/02/17 23:59 Weight 100.2 kg Incision: draining (Postop dressings to right hand intact with no new drainage visible. Good motion of unaffected fingers, brisk cap refill to other digits.) - Labs CBC & BMP: 09/02/17 05:04 09/02/17 05:04 Labs: Abnormal lab results RBC 3.96 M/mcL (4.19-5.50) L 09/02/17 05:04 Hgb 12.3 g/dL (12.9-16.9) L 09/02/17 05:04 Hct 35.2 % (37.5-50.1) L 09/02/17 05:04 RDW 11.3 % (11.5-14.5) L 09/02/17 05:04 Nucleated RBCs/100 WBC 0.2 /100 WBC (0) H 09/01/17 07:42 ESR 53 mm/hr (0-10) H 08/31/17 05:20 Sodium 134 mEq/L (136-145) L 09/02/17 05:04 BUN 24 mg/dL (8-23) H 09/02/17 05:04 Creatinine 0.62 mg/dL (0.70-1.30) L 09/02/17 05:04 BUN/Creatinine Ratio 39 (6-26) H 09/02/17 05:04 Glucose 168 mg/dL (70-105) H 09/02/17 05:04 POC Glucose 171 mg/dL (70-99) H 09/02/17 07:25 Hemoglobin A1c 6.6 % (-5.6) H 08/30/17 06:27 AST 10 Units/L (13-39) L 08/30/17 04:49 C-Reactive Protein 72 mg/L (Less than 10) H 08/31/17 05:20 Serum Total Protein 6.3 g/dL (6.4-8.9) L 08/30/17 04:49 Albumin 3.2 g/dL (3.5-5.7) L 08/30/17 04:49 Albumin/Globulin Ratio 1.0 (1.1-2.2) L 08/30/17 04:49 Urine Glucose (UA) 100 mg/dL (Normal) H 08/30/17 04:56 Staphylococcus sp PCR DETECTED (Not Detect) A 08/29/17 17:20 Staph aureus (PCR) DETECTED (Not Detect) A 08/29/17 17:20 - VTE Documentation of Mechanical Device: Intermittent pneumatic compression device Consult Discharge Plan - Plan Referrals: [facility] [Outside] Sheron Harmon, PAC [Physician Statistical Clerk Advertising] - 09/07/17 1:00 pm Prescriptions: ceFAZolin [Ancef] 2,000 mg IV Q8H #14 vial
--- NOTE | 2017-09-02 18:13 | Internal Med Progress Note ---
Date of Encounter: 09/02/17 Time of Encounter: 18:10 - Assessment and plan (1) Bacteremia Current Visit: Yes Status: Acute Assessment and plan: Likely due to osteomyelitis Due to MSSA seen in blood cultuers 08/29 and 08/30 (and also seen in wound culture ). - Repeat blood cultures today - Continue cefazolin - Need blood cultures negative for 48 hours prior to picc placement - likely 6 weeks of antibiotics - TTE was negative for any vegitation - May need LAURA prior to discharge. - Repeat blood cultures today. (2) Osteomyelitis Current Visit: Yes Status: Acute Assessment and plan: OM secondary to infection of right long finger. S/p amputation on 08/30. Patient clinically doing well. Vital signs are stable and he is afebrile. He has no leukocytosis. 08/29 blood cultures and Repeat blood cultures from 08/30 also showed GPC - note these samples were obtained prior to finger amputation. Will d/w ID at what point to repeat blood cultures. - ID consulted, recommendations appreciated. - Follow-up sensitivities. - Continue Ancef 2,000 mg Q8H. - Follow-up repeat cultures, NGTD Qualifiers: Osteomyelitis type: unspecified type Osteomyelitis location: hand Laterality: right Qualified Code(s): M86.9 - Osteomyelitis, unspecified (3) Anemia Current Visit: Yes Status: Acute Assessment and plan: Stable Qualifiers: Anemia type: unspecified type Qualified Code(s): D64.9 - Anemia, unspecified (4) Hypertension Current Visit: Yes Status: Chronic Assessment and plan: Continue home medications. Qualifiers: Hypertension type: essential hypertension Qualified Code(s): I10 - Essential (primary) hypertension (5) Hyperlipidemia Current Visit: Yes Status: Chronic Assessment and plan: Continue home medications. Qualifiers: Hyperlipidemia type: unspecified Qualified Code(s): E78.5 - Hyperlipidemia , unspecified (6) Diabetes Current Visit: Yes Status: Acute Assessment and plan: ISS AC and HS Diabetic diet Qualifiers: Diabetes mellitus type: type 2 Diabetes mellitus long-term insulin use: unspecified forestry patrolman insulin use status Diabetes mellitus complication status : with unspecified complications Qualified Code(s): E11.8 - Type 2 diabetes mellitus with unspecified complications (7) DVT prophylaxis Current Visit: Yes Status: Acute Assessment and plan: SCD - Time Spent With Patient Total time spent is greater than 50% in coordination of care (as documented) at patient's floor/unit and/or counseling patient: - Subjective Interval history: Patient s/p finger amputation. He has no complaints and denies finger pain. Denies fevers/chills, edema. - Constitutional Vitals: Temp Pulse Resp BP Pulse Ox 98.0 F 66 16 144/70 98 09/02/17 15:45 09/02/17 15:45 09/02/17 15:45 09/02/17 15:45 09/02/17 15:45 General appearance: Present: A&O X 3 Exam: - Head Head exam: Present: atraumatic, normocephalic - Eye Eye exam: Present: PERRL, conjuntiva pink, sclera anicteric Pupils: Present: PERRL - Neck Neck exam general surgery: Present: supple, trachea midline. Absent: lymphadenopathy - Respiratory Respiratory exam: Present: CTAB. Absent: accessory muscle use, rales, rhonchi, wheezes - Cardiovascular Cardiovascular exam: Present: RRR, +S1, +S2. Absent: diastolic murmur, gallop, rubs, systolic murmur - GI/Abdominal GI/Abdominal exam: Present: normal bowel sounds, soft, no peritoneal signs. Absent: distended, tenderness - Extremities Exam Extremities exam: Present: warm, radial pulses palpable and symmetrical. Absent : calf tenderness, cyanotic, pedal edema Additional comments: Right hand with clean dressing. - Neurological Exam Neurological exam: Present: CN II-XII intact, oriented X3, no focal deficits. Absent: pronater drift, facial droop, speech deficit - Skin Skin exam: Present: dry, intact Internal Medicine: Result - Labs CBC & Chem 7: 09/02/17 05:04 09/02/17 05:04 Labs: Short CBC 09/02/17 Range/Units 05:04 WBC 6.1 (4.3-11.1) K/mcL Hgb 12.3 L (12.9-16.9) g/dL Hct 35.2 L (37.5-50.1) % Plt Count 265 (140-400) K/mcL Neutrophils # 4.1 (1.6-8.9) K/mcL BMP 09/02/17 05:04 Sodium 134 L Potassium 4.2 Chloride 105 Carbon Dioxide 24 BUN 24 H Creatinine 0.62 L Glucose 168 H Calcium 8.6 - ABG Interpretation ABG results: PT/INR, D-dimer PT 12.1 Seconds (9.4-12.1) 08/29/17 17:23 - Impressions Impressions Echocardiogram 09/02/17 10:27 Impressions: LVEF 55-60%. Normal LV chamber size, wall thickness and function. Normal left ventricular diastolic function. Normal right ventricular structure and function. Unable to estimate RVSP due to lack of TR jet. No significant valvular dysfunction. Left Ventricular Wall Motion: Rest Echo Findings All wall segments showed normal motion. Findings: Study Quality * Technically adequate exam. ECG Findings * Sinus bradycardia. Left Ventricle * LVEF 55-60%. * Normal LV chamber size, wall thickness and function. * Normal left ventricular diastolic function. Right Ventricle * Normal right ventricular structure and function. Left Atrium * Moderately dilated left atrium. Right Atrium * Mildly dilated right atrium. Aortic Valve * Aortic valve not well visualized. * No aortic stenosis. * No aortic regurgitation. Mitral Valve * Normal mitral valve structure and function. * No mitral regurgitation. * No mitral stenosis. Tricuspid Valve * Normal tricuspid valve structure and function. * No tricuspid regurgitation. * Unable to estimate RVSP due to lack of TR jet. Pulmonic Valve * Normal pulmonic valve structure and function. * No pulmonic regurgitation. Aorta * Normally sized aortic root. Pericardium * The pericardium appears normal. IVC * Normal IVC dimensions and inspiratory collapse. Pulmonary Artery * Normal visualized portions of the main pulmonary artery. - VTE Documentation of Mechanical Device: Intermittent pneumatic compression device Consult Discharge Plan - Plan Referrals: [facility] [Outside] Sheron Harmon, PAC [Physician Bar Waiter/Waitress] - 09/07/17 1:00 pm Prescriptions: ceFAZolin [Ancef] 2,000 mg IV Q8H #14 vial
[2017-09-03] MEDS: ceFAZolin 2,000 MG in 0.9 % Sodium Chloride 100 ML IVPB SCH ×3 (01:41→17:16)
[2017-09-03 05:29] LABS: Basophils % 0.5 %; Eosinophils # 0.6 K/mcL (0.0-0.6); Eosinophils % 9.5 %; Hematocrit 35.3 % (37.5-50.1); Hemoglobin 12.4 g/dL (12.9-16.9); Immature Granulocytes % 1.1 % (0-4); Lymphocytes # 1.2 K/mcL (0.6-4.6); Lymphocytes % 19.5 %; Mean Corpuscular HGB Conc 35.1 g/dL (31.6-35.5); Mean Corpuscular Hemoglobin 31.1 pg (28.0-33.3); Mean Corpuscular Volume 88.5 fL (83.0-100.0); Mean Platelet Volume 9.7 fL (9.4-12.4); Monocytes # 0.5 K/mcL (0.0-1.3); Monocytes % 7.1 %; Neutrophils # 3.9 K/mcL (1.6-8.9); Platelet Count 276 K/mcL (140-400); Red Blood Count 3.99 M/mcL (4.19-5.50); Red Cell Distribution Width 11.2 % (11.5-14.5); Segmented Neutrophils % 62.3 %
[2017-09-03 05:52] LABS: BUN/Creatinine Ratio 32 (6-26); Blood Urea Nitrogen 19 mg/dL (8-23); Calcium 8.9 mg/dL (8.6-10.3); Carbon Dioxide 24 mEq/L (23-29); Chloride 103 mEq/L (98-107); Glucose 155 mg/dL (70-105); Osmolality,Calculated 287 (280-300); Potassium 4.4 mEq/L (3.5-5.1); Sodium 136 mEq/L (136-145); eGFR For African Americans > 60 (> 60); eGFR For Non-African Americans > 60 (> 60)
[2017-09-03] MEDS: Insulin LISPRO 300 UNITS/3 ML VIAL SQ SCH ×3 (08:22→17:16)
[2017-09-03] MEDS: Gabapentin 300 MG CAPSULE PO SCH ×3 (09:35→21:07)
[2017-09-03] MEDS: Lisinopril 20 MG TABLET PO SCH (09:35)
[2017-09-03] MEDS: Cholecalciferol (D-3) 1,000 UNIT TABLET PO SCH (09:35)
[2017-09-03] MEDS: Aspirin Enteric Coated 81 MG Tablet PO SCH (09:36)
--- NOTE | 2017-09-03 15:39 | Internal Med Progress Note ---
Date of Encounter: 09/03/17 Time of Encounter: 15:36 - Assessment and plan (1) Bacteremia Current Visit: Yes Status: Acute Assessment and plan: Likely due to osteomyelitis Due to MSSA seen in blood cultuers 08/29 and 08/30 (and also seen in wound culture ). - Continue cefazolin - Need blood cultures negative for 48 hours prior to picc placement - likely 6 weeks of antibiotics - TTE was negative for any vegitation - May need LAURA prior to discharge. - Bood cultures 09/01: no growth, will follow final results. (2) Osteomyelitis Current Visit: Yes Status: Acute Assessment and plan: OM secondary to infection of right long finger. S/p amputation on 08/30. Patient clinically doing well. Vital signs are stable and he is afebrile. He has no leukocytosis. 08/29 blood cultures and Repeat blood cultures from 08/30 also showed GPC - note these samples were obtained prior to finger amputation. Will d/w ID at what point to repeat blood cultures. - ID consulted, recommendations appreciated. - Initial blood cultures grew MSSA on 08/29 and 08/30. likely the causitive organism. - Continue Ancef 2,000 mg Q8H. - Follow-up repeat cultures, NGTD Qualifiers: Osteomyelitis type: unspecified type Osteomyelitis location: hand Laterality: right Qualified Code(s): M86.9 - Osteomyelitis, unspecified (3) Anemia Current Visit: Yes Status: Acute Assessment and plan: Stable Qualifiers: Anemia type: unspecified type Qualified Code(s): D64.9 - Anemia, unspecified (4) Hypertension Current Visit: Yes Status: Chronic Assessment and plan: Continue home medications. Qualifiers: Hypertension type: essential hypertension Qualified Code(s): I10 - Essential (primary) hypertension (5) Hyperlipidemia Current Visit: Yes Status: Chronic Assessment and plan: Continue home medications. Qualifiers: Hyperlipidemia type: unspecified Qualified Code(s): E78.5 - Hyperlipidemia , unspecified (6) Diabetes Current Visit: Yes Status: Acute Assessment and plan: ISS AC Diabetic diet Glucose gradually increasing, will add 10 units Levemir HS Qualifiers: Diabetes mellitus type: type 2 Diabetes mellitus mcc insulin use: unspecified long term care administrator insulin use status Diabetes mellitus complication status : with unspecified complications Qualified Code(s): E11.8 - Type 2 diabetes mellitus with unspecified complications (7) DVT prophylaxis Current Visit: Yes Status: Acute Assessment and plan: SCD - Time Spent With Patient Total time spent is greater than 50% in coordination of care (as documented) at patient's floor/unit and/or counseling patient: - Subjective Interval history: Patient s/p finger amputation. He has no complaints and denies finger pain. Denies fevers/chills, edema. He ambulates in the hallway and is pleasant. - Constitutional Vitals: Temp Pulse Resp BP Pulse Ox 97.5 F L 57 18 123/74 97 09/03/17 11:41 09/03/17 11:41 09/03/17 11:41 09/03/17 07:34 09/03/17 11:41 General appearance: Present: A&O X 3 - Head Head exam: Present: atraumatic, normocephalic - Eye Eye exam: Present: PERRL, conjuntiva pink, sclera anicteric Pupils: Present: PERRL - Neck Neck exam general surgery: Present: supple, trachea midline. Absent: lymphadenopathy - Respiratory Respiratory exam: Present: CTAB. Absent: accessory muscle use, rales, rhonchi, wheezes - Cardiovascular Cardiovascular exam: Present: RRR, +S1, +S2. Absent: diastolic murmur, gallop, rubs, systolic murmur - GI/Abdominal GI/Abdominal exam: Present: normal bowel sounds, soft, no peritoneal signs. Absent: distended, tenderness - Extremities Exam Extremities exam: Present: warm, radial pulses palpable and symmetrical. Absent : calf tenderness, cyanotic, pedal edema Additional comments: Left hand post op, dressing clean, dry, intact - Neurological Exam Neurological exam: Present: CN II-XII intact, oriented X3, no focal deficits. Absent: pronater drift, facial droop, speech deficit - Skin Skin exam: Present: dry, intact Internal Medicine: Result - Labs CBC & Chem 7: 09/03/17 04:51 09/03/17 04:51 Labs: Short CBC 09/03/17 Range/Units 04:51 WBC 6.3 (4.3-11.1) K/mcL Hgb 12.4 L (12.9-16.9) g/dL Hct 35.3 L (37.5-50.1) % Plt Count 276 (140-400) K/mcL Neutrophils # 3.9 (1.6-8.9) K/mcL BMP 09/03/17 04:51 Sodium 136 Potassium 4.4 Chloride 103 Carbon Dioxide 24 BUN 19 Creatinine 0.60 L Glucose 155 H Calcium 8.9 - ABG Interpretation ABG results: PT/INR, D-dimer PT 12.1 Seconds (9.4-12.1) 08/29/17 17:23 - VTE Documentation of Mechanical Device: Intermittent pneumatic compression device Consult Discharge Plan - Plan Referrals: [facility] [Outside] Sheron Harmon, PAC [Physician Fire Safety Director] - 09/07/17 1:00 pm Prescriptions: ceFAZolin [Ancef] 2,000 mg IV Q8H #14 vial
[2017-09-03] MEDS: Insulin DETEMIR 100 UNIT/ML X5UNITS SQ SCH (21:08)
[2017-09-04] MEDS: ceFAZolin 2,000 MG in 0.9 % Sodium Chloride 100 ML IVPB SCH ×3 (01:18→17:11)
[2017-09-04 05:22] LABS: Basophils # 0.1 K/mcL (0.0-0.2); Basophils % 0.8 %; Eosinophils # 0.6 K/mcL (0.0-0.6); Eosinophils % 8.9 %; Hematocrit 36.7 % (37.5-50.1); Hemoglobin 12.5 g/dL (12.9-16.9); Lymphocytes # 1.5 K/mcL (0.6-4.6); Lymphocytes % 24.2 %; Mean Corpuscular HGB Conc 34.1 g/dL (31.6-35.5); Mean Platelet Volume 9.6 fL (9.4-12.4); Monocytes # 0.5 K/mcL (0.0-1.3); Monocytes % 7.2 %; Neutrophils # 3.6 K/mcL (1.6-8.9); Platelet Count 279 K/mcL (140-400); Red Blood Count 4.17 M/mcL (4.19-5.50); Red Cell Distribution Width 11.5 % (11.5-14.5); Segmented Neutrophils % 57.9 %
[2017-09-04 05:39] LABS: BUN/Creatinine Ratio 37 (6-26); Blood Urea Nitrogen 23 mg/dL (8-23); Calcium 8.8 mg/dL (8.6-10.3); Carbon Dioxide 26 mEq/L (23-29); Chloride 106 mEq/L (98-107); Glucose 151 mg/dL (70-105); Osmolality,Calculated 291 (280-300); Potassium 4.3 mEq/L (3.5-5.1); Sodium 137 mEq/L (136-145); eGFR For African Americans > 60 (> 60); eGFR For Non-African Americans > 60 (> 60)
[2017-09-04] MEDS: Insulin LISPRO 300 UNITS/3 ML VIAL SQ SCH ×3 (08:20→17:11)
[2017-09-04] MEDS: Aspirin Enteric Coated 81 MG Tablet PO SCH (08:20)
[2017-09-04] MEDS: Gabapentin 300 MG CAPSULE PO SCH ×3 (08:21→21:01)
[2017-09-04] MEDS: Cholecalciferol (D-3) 1,000 UNIT TABLET PO SCH (08:21)
[2017-09-04] MEDS: Lisinopril 20 MG TABLET PO SCH (08:21)
--- NOTE | 2017-09-04 11:09 | Internal Med Progress Note ---
Date of Encounter: 09/04/17 Time of Encounter: 11:05 - Assessment and plan (1) Bacteremia Current Visit: Yes Status: Acute Assessment and plan: Likely due to osteomyelitis Due to MSSA seen in blood cultuers 08/29 and 08/30 (and also seen in wound culture ). - Continue cefazolin - Need blood cultures negative for 48 hours prior to picc placement - likely 6 weeks of antibiotics - TTE was negative for any vegitation - May need LAURA prior to discharge. - Bood cultures 09/01: no growth, will follow final results. (2) Diabetes Current Visit: Yes Status: Acute Assessment and plan: ISS AC Diabetic diet Improved after adding basal insulin Qualifiers: Diabetes mellitus type: type 2 Diabetes mellitus cardiovascular lab director insulin use: unspecified [facility] insulin use status Diabetes mellitus complication status : with unspecified complications Qualified Code(s): E11.8 - Type 2 diabetes mellitus with unspecified complications (3) Osteomyelitis Current Visit: Yes Status: Acute Assessment and plan: OM secondary to infection of right long finger. S/p amputation on 08/30. Patient clinically doing well. Vital signs are stable and he is afebrile. He has no leukocytosis. 08/29 blood cultures and Repeat blood cultures from 08/30 also showed GPC - note these samples were obtained prior to finger amputation. Will d/w ID at what point to repeat blood cultures. - ID consulted, recommendations appreciated. - Initial blood cultures grew MSSA on 08/29 and 08/30. likely the causitive organism. - Follow-up repeat cultures, NGTD - Continue Ancef 2,000 mg Q8H. Qualifiers: Osteomyelitis type: unspecified type Osteomyelitis location: hand Laterality: right Qualified Code(s): M86.9 - Osteomyelitis, unspecified (4) Anemia Current Visit: Yes Status: Acute Assessment and plan: Stable Qualifiers: Anemia type: unspecified type Qualified Code(s): D64.9 - Anemia, unspecified (5) Hypertension Current Visit: Yes Status: Chronic Assessment and plan: Continue home medications. Qualifiers: Hypertension type: essential hypertension Qualified Code(s): I10 - Essential (primary) hypertension (6) Hyperlipidemia Current Visit: Yes Status: Chronic Assessment and plan: Continue home medications. Qualifiers: Hyperlipidemia type: unspecified Qualified Code(s): E78.5 - Hyperlipidemia , unspecified (7) DVT prophylaxis Current Visit: Yes Status: Acute Assessment and plan: SCD - Time Spent With Patient Total time spent is greater than 50% in coordination of care (as documented) at patient's floor/unit and/or counseling patient: - Subjective Interval history: Patient s/p finger amputation. He has no complaints and denies finger pain. Denies fevers/chills, edema. He ambulates in the hallway and is pleasant. - Constitutional Vitals: Temp Pulse Resp BP Pulse Ox 97.8 F 86 15 126/72 98 09/04/17 07:39 09/04/17 07:39 09/04/17 07:39 09/04/17 07:39 09/04/17 07:39 General appearance: Present: A&O X 3 Exam: - Head Head exam: Present: atraumatic, normocephalic - Eye Eye exam: Present: PERRL, conjuntiva pink, sclera anicteric Pupils: Present: PERRL - Neck Neck exam general surgery: Present: supple, trachea midline. Absent: lymphadenopathy - Respiratory Respiratory exam: Present: CTAB. Absent: accessory muscle use, rales, rhonchi, wheezes - Cardiovascular Cardiovascular exam: Present: RRR, +S1, +S2. Absent: diastolic murmur, gallop, rubs, systolic murmur - GI/Abdominal GI/Abdominal exam: Present: normal bowel sounds, soft, no peritoneal signs. Absent: distended, tenderness - Extremities Exam Extremities exam: Present: warm, radial pulses palpable and symmetrical. Absent : calf tenderness, cyanotic, pedal edema Additional comments: Left hand post op, dressing clean, dry, intact - Neurological Exam Neurological exam: Present: CN II-XII intact, oriented X3, no focal deficits. Absent: pronater drift, facial droop, speech deficit - Skin Skin exam: Present: dry, intact Internal Medicine: Result - Labs CBC & Chem 7: 09/04/17 04:45 09/04/17 04:45 Labs: Short CBC 09/04/17 Range/Units 04:45 WBC 6.2 (4.3-11.1) K/mcL Hgb 12.5 L (12.9-16.9) g/dL Hct 36.7 L (37.5-50.1) % Plt Count 279 (140-400) K/mcL Neutrophils # 3.6 (1.6-8.9) K/mcL BMP 09/04/17 04:45 Sodium 137 Potassium 4.3 Chloride 106 Carbon Dioxide 26 BUN 23 Creatinine 0.63 L Glucose 151 H Calcium 8.8 - ABG Interpretation ABG results: PT/INR, D-dimer PT 12.1 Seconds (9.4-12.1) 08/29/17 17:23 - VTE Documentation of Mechanical Device: Intermittent pneumatic compression device Consult Discharge Plan - Plan Referrals: [facility] [Outside] Sheron Harmon, PAC [Physician Rn Hospital] - 09/07/17 1:00 pm Prescriptions: ceFAZolin [Ancef] 2,000 mg IV Q8H #14 vial
[2017-09-04] MEDS: Insulin DETEMIR 100 UNIT/ML X5UNITS SQ SCH (21:02)
[2017-09-05] MEDS: ceFAZolin 2,000 MG in 0.9 % Sodium Chloride 100 ML IVPB SCH ×3 (01:10→16:52)
[2017-09-05 05:49] LABS: Basophils # 0.1 K/mcL (0.0-0.2); Basophils % 0.9 %; Eosinophils # 0.4 K/mcL (0.0-0.6); Eosinophils % 7.2 %; Hematocrit 35.8 % (37.5-50.1); Hemoglobin 12.3 g/dL (12.9-16.9); Immature Granulocytes % 0.7 % (0-4); Lymphocytes # 1.7 K/mcL (0.6-4.6); Lymphocytes % 29.5 %; Mean Corpuscular HGB Conc 34.4 g/dL (31.6-35.5); Mean Corpuscular Hemoglobin 30.3 pg (28.0-33.3); Mean Corpuscular Volume 88.2 fL (83.0-100.0); Mean Platelet Volume 9.5 fL (9.4-12.4); Monocytes # 0.4 K/mcL (0.0-1.3); Monocytes % 6.6 %; Neutrophils # 3.2 K/mcL (1.6-8.9); Platelet Count 282 K/mcL (140-400); Red Blood Count 4.06 M/mcL (4.19-5.50); Red Cell Distribution Width 11.5 % (11.5-14.5); Segmented Neutrophils % 55.1 %
[2017-09-05 06:09] LABS: BUN/Creatinine Ratio 38 (6-26); Blood Urea Nitrogen 23 mg/dL (8-23); Calcium 8.9 mg/dL (8.6-10.3); Carbon Dioxide 24 mEq/L (23-29); Chloride 105 mEq/L (98-107); Glucose 156 mg/dL (70-105); Osmolality,Calculated 289 (280-300); Potassium 4.3 mEq/L (3.5-5.1); Sodium 136 mEq/L (136-145); eGFR For African Americans > 60 (> 60); eGFR For Non-African Americans > 60 (> 60)
[2017-09-05] MEDS: Insulin LISPRO 300 UNITS/3 ML VIAL SQ SCH ×3 (08:33→16:53)
[2017-09-05] MEDS: Aspirin Enteric Coated 81 MG Tablet PO SCH (08:34)
[2017-09-05] MEDS: Cholecalciferol (D-3) 1,000 UNIT TABLET PO SCH (08:34)
[2017-09-05] MEDS: Gabapentin 300 MG CAPSULE PO SCH ×3 (08:34→21:10)
[2017-09-05] MEDS: Lisinopril 20 MG TABLET PO SCH (08:34)
--- NOTE | 2017-09-05 15:41 | Internal Med Progress Note ---
Date of Encounter: 09/05/17 Time of Encounter: 15:11 - Assessment and plan (1) Osteomyelitis Current Visit: Yes Status: Acute Assessment and plan: OM secondary to infection of right long finger. S/p amputation on 08/30. Patient clinically doing well. Vital signs are stable and he is afebrile. He has no leukocytosis. 08/29 blood cultures and Repeat blood cultures from 08/30 also showed GPC - note these samples were obtained prior to finger amputation. Will d/w ID at what point to repeat blood cultures. - ID consulted, recommendations appreciated. - Initial blood cultures grew MSSA on 08/29 and 08/30. likely the causitive organism. - Follow-up repeat cultures, NGTD - Continue Ancef 2,000 mg Q8H. Qualifiers: Osteomyelitis type: unspecified type Osteomyelitis location: hand Laterality: right Qualified Code(s): M86.9 - Osteomyelitis, unspecified (2) Bacteremia Current Visit: Yes Status: Acute Assessment and plan: Likely due to osteomyelitis Due to MSSA seen in blood cultuers 08/29 and 08/30 (and also seen in wound culture ). - Continue cefazolin - Need blood cultures negative for 48 hours prior to picc placement - likely 6 weeks of antibiotics - Bood cultures 09/01: no growth, will follow final results. - May need LAURA prior to discharge. (TTE was negative for any vegitation) (3) Diabetes Current Visit: Yes Status: Acute Assessment and plan: ISS AC Diabetic diet Improved after adding basal insulin Qualifiers: Diabetes mellitus type: type 2 Diabetes mellitus care home insulin use: unspecified director long term care insulin use status Diabetes mellitus complication status : with unspecified complications Qualified Code(s): E11.8 - Type 2 diabetes mellitus with unspecified complications (4) Anemia Current Visit: Yes Status: Acute Assessment and plan: Stable Qualifiers: Anemia type: unspecified type Qualified Code(s): D64.9 - Anemia, unspecified (5) Hypertension Current Visit: Yes Status: Chronic Assessment and plan: Continue home medications. Qualifiers: Hypertension type: essential hypertension Qualified Code(s): I10 - Essential (primary) hypertension (6) Hyperlipidemia Current Visit: Yes Status: Chronic Assessment and plan: Continue home medications. Qualifiers: Hyperlipidemia type: unspecified Qualified Code(s): E78.5 - Hyperlipidemia , unspecified (7) DVT prophylaxis Current Visit: Yes Status: Acute Assessment and plan: SCD - Time Spent With Patient Total time spent is greater than 50% in coordination of care (as documented) at patient's floor/unit and/or counseling patient: - Subjective Interval history: Patient s/p finger amputation. He has no complaints and denies finger pain. Denies fevers/chills, edema. Pleasant and has no complaints. - Constitutional Vitals: Temp Pulse Resp BP Pulse Ox 98.2 F 65 14 157/73 99 09/05/17 15:13 09/05/17 15:13 09/05/17 15:13 09/05/17 15:13 09/05/17 15:13 General appearance: Present: A&O X 3 Exam: CVS: rrr Lungs; CTAB Ext: right hand dressing clean Internal Medicine: Result - Labs CBC & Chem 7: 09/05/17 05:20 09/05/17 05:20 Labs: Short CBC 09/05/17 Range/Units 05:20 WBC 5.7 (4.3-11.1) K/mcL Hgb 12.3 L (12.9-16.9) g/dL Hct 35.8 L (37.5-50.1) % Plt Count 282 (140-400) K/mcL Neutrophils # 3.2 (1.6-8.9) K/mcL BMP 09/05/17 05:20 Sodium 136 Potassium 4.3 Chloride 105 Carbon Dioxide 24 BUN 23 Creatinine 0.61 L Glucose 156 H Calcium 8.9 - ABG Interpretation ABG results: PT/INR, D-dimer PT 12.1 Seconds (9.4-12.1) 08/29/17 17:23 - VTE Documentation of Mechanical Device: Intermittent pneumatic compression device Consult Discharge Plan - Plan Referrals: [facility] [Outside] Sheron Harmon, PAC [Physician Client Renewal Specialist] - 09/07/17 1:00 pm Prescriptions: ceFAZolin [Ancef] 2,000 mg IV Q8H #14 vial
[2017-09-05] MEDS: Insulin DETEMIR 100 UNIT/ML X5UNITS SQ SCH (21:11)
[2017-09-06] MEDS: ceFAZolin 2,000 MG in 0.9 % Sodium Chloride 100 ML IVPB SCH ×4 (00:05→22:53)
[2017-09-06 05:49] LABS: Basophils # 0.1 K/mcL (0.0-0.2); Basophils % 1.1 %; Eosinophils # 0.4 K/mcL (0.0-0.6); Eosinophils % 5.5 %; Hematocrit 36.2 % (37.5-50.1); Hemoglobin 12.6 g/dL (12.9-16.9); Immature Granulocytes % 1.3 % (0-4); Lymphocytes # 1.9 K/mcL (0.6-4.6); Mean Corpuscular HGB Conc 34.8 g/dL (31.6-35.5); Mean Corpuscular Hemoglobin 31.2 pg (28.0-33.3); Mean Corpuscular Volume 89.6 fL (83.0-100.0); Mean Platelet Volume 9.6 fL (9.4-12.4); Monocytes # 0.5 K/mcL (0.0-1.3); Neutrophils # 3.5 K/mcL (1.6-8.9); Platelet Count 287 K/mcL (140-400); Red Blood Count 4.04 M/mcL (4.19-5.50); Red Cell Distribution Width 11.5 % (11.5-14.5); Segmented Neutrophils % 55.1 %
[2017-09-06 06:12] LABS: BUN/Creatinine Ratio 41 (6-26); Blood Urea Nitrogen 27 mg/dL (8-23); Carbon Dioxide 26 mEq/L (23-29); Chloride 105 mEq/L (98-107); Glucose 170 mg/dL (70-105); Osmolality,Calculated 291 (280-300); Potassium 4.4 mEq/L (3.5-5.1); Sodium 136 mEq/L (136-145); eGFR For African Americans > 60 (> 60); eGFR For Non-African Americans > 60 (> 60)
[2017-09-06] MEDS: Lisinopril 20 MG TABLET PO SCH (08:35)
[2017-09-06] MEDS: Gabapentin 300 MG CAPSULE PO SCH ×3 (08:35→21:18)
[2017-09-06] MEDS: Aspirin Enteric Coated 81 MG Tablet PO SCH (08:35)
[2017-09-06] MEDS: Cholecalciferol (D-3) 1,000 UNIT TABLET PO SCH (08:35)
[2017-09-06] MEDS: Insulin LISPRO 300 UNITS/3 ML VIAL SQ SCH ×3 (08:35→18:06)
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
--- NOTE | 2017-09-06 12:21 | Internal Med Progress Note ---
Date of Encounter: 09/06/17 Time of Encounter: 12:19 - Assessment and plan (1) Osteomyelitis Current Visit: Yes Status: Acute Assessment and plan: OM secondary to infection of right long finger. S/p amputation on 08/30. Patient clinically doing well. Vital signs are stable and he is afebrile. He has no leukocytosis. 08/29 blood cultures and Repeat blood cultures from 08/30 also showed GPC - note these samples were obtained prior to finger amputation. Will d/w ID at what point to repeat blood cultures. - ID consulted, recommendations appreciated. - Initial blood cultures grew MSSA on 08/29 and 08/30. likely the causitive organism. - Follow-up repeat cultures, NGTD - Continue Ancef 2,000 mg Q8H. 09/06: Awaiting LAURA and PICC line. Pt will continue on Ancef every 8 hours 2 g , as directed by infectious disease. Follow-up on 09/20/2017. Qualifiers: Osteomyelitis type: unspecified type Osteomyelitis location: hand Laterality: right Qualified Code(s): M86.9 - Osteomyelitis, unspecified (2) Anemia Current Visit: Yes Status: Acute Assessment and plan: Stable Qualifiers: Anemia type: unspecified type Qualified Code(s): D64.9 - Anemia, unspecified (3) DVT prophylaxis Current Visit: Yes Status: Acute (4) Hypertension Current Visit: Yes Status: Chronic Assessment and plan: Continue home medications. Qualifiers: Hypertension type: essential hypertension Qualified Code(s): I10 - Essential (primary) hypertension (5) Hyperlipidemia Current Visit: Yes Status: Chronic Assessment and plan: Continue home medications. Qualifiers: Hyperlipidemia type: unspecified Qualified Code(s): E78.5 - Hyperlipidemia , unspecified (6) Diabetes Current Visit: Yes Status: Acute Assessment and plan: ISS AC Diabetic diet Improved after adding basal insulin 09/06: Reasonable glycemic control Qualifiers: Diabetes mellitus type: type 2 Diabetes mellitus long term care social worker insulin use: unspecified residential insulin use status Diabetes mellitus complication status : with unspecified complications Qualified Code(s): E11.8 - Type 2 diabetes mellitus with unspecified complications (7) Bacteremia Current Visit: Yes Status: Acute - Time Spent With Patient Total time spent is greater than 50% in coordination of care (as documented) at patient's floor/unit and/or counseling patient: - Subjective Interval history: Pain control. States he wants to go home. Awaiting LAURA and PICC line placement for home antibiotics. No other complaints. No chest pain or shortness of breath. No nausea, vomiting, diarrhea. No fevers or chills. - Constitutional Vitals: Temp Pulse Resp BP Pulse Ox 98.0 F 56 18 173/83 98 09/06/17 11:57 09/06/17 11:57 09/06/17 11:57 09/06/17 11:57 09/06/17 11:57 General appearance: Present: A&O X 3 - Head Head exam: Present: atraumatic, normocephalic - Eye Eye exam: Present: PERRL, conjuntiva pink, sclera anicteric Pupils: Present: PERRL - Neck Neck exam general surgery: Present: supple, trachea midline. Absent: lymphadenopathy - Respiratory Respiratory exam: Present: CTAB. Absent: accessory muscle use, rales, rhonchi, wheezes - Cardiovascular Cardiovascular exam: Present: RRR, +S1, +S2. Absent: diastolic murmur, gallop, rubs, systolic murmur - GI/Abdominal GI/Abdominal exam: Present: normal bowel sounds, soft, no peritoneal signs. Absent: distended, tenderness - Extremities Exam Additional comments: Hand covered with dressing - Neurological Exam Neurological exam: Present: CN II-XII intact, oriented X3, no focal deficits. Absent: pronater drift, facial droop, speech deficit - Skin Skin exam: Present: dry, intact Internal Medicine: Result - Labs CBC & Chem 7: 09/06/17 05:31 09/06/17 05:31 Labs: Short CBC 09/06/17 Range/Units 05:31 WBC 6.4 (4.3-11.1) K/mcL Hgb 12.6 L (12.9-16.9) g/dL Hct 36.2 L (37.5-50.1) % Plt Count 287 (140-400) K/mcL Neutrophils # 3.5 (1.6-8.9) K/mcL BMP 09/06/17 05:31 Sodium 136 Potassium 4.4 Chloride 105 Carbon Dioxide 26 BUN 27 H Creatinine 0.66 L Glucose 170 H Calcium 9.0 - ABG Interpretation ABG results: PT/INR, D-dimer PT 12.1 Seconds (9.4-12.1) 08/29/17 17:23 - VTE Documentation of Mechanical Device: Intermittent pneumatic compression device Consult Discharge Plan - Plan Referrals: [facility] [Outside] Sheron Harmon, PAC [Physician Supervisor [employer]] - 09/07/17 1:00 pm Elaina Grant, PEST LOCATOR [Advanced Practice Nurse] - 09/20/17 9:00 am Prescriptions: ceFAZolin [Ancef] 2,000 mg IV Q8H #14 vial
--- NOTE | 2017-09-06 14:10 | Physician Discharge Referral ---
Home Health/Hosp Referral Info Transfer to: [facility] - Diagnosis (1) Osteomyelitis Status: Acute (2) Anemia Status: Acute (3) DVT prophylaxis Status: Acute (4) Hypertension Status: Chronic (5) Hyperlipidemia Status: Chronic (6) Diabetes Status: Acute (7) Bacteremia Status: Acute - Respiratory Orders Smoking Cessation: Smoking cessation has been advised. For more information, call the [facility] Quit Line at 1-195-TELI-NOW. - Transfer Medications Prescriptions: ceFAZolin [Ancef] 2,000 mg IV Q8H #14 vial Home Medications: Aspirin [Lo-Dose Aspirin EC] 81 mg PO DAILY 08/29/17 [History] Cholecalciferol (D-3) [Vitamin D] 1,000 unit PO DAILY 08/29/17 [History] Clopidogrel [Plavix] 75 mg PO DAILY 08/29/17 [History] Gabapentin [Neurontin] 300 mg PO TID 08/29/17 [History] Lisinopril [Zestril] 40 mg PO DAILY 08/29/17 [History] Metoprolol [Lopressor] 25 mg PO DAILY 08/29/17 [History] Simvastatin [Zocor] 80 mg PO HS 08/29/17 [History] metFORMIN [Glucophage] 1,000 mg PO BIDWM 08/29/17 [History] ceFAZolin [Ancef] 2,000 mg IV Q8H #14 vial 09/01/17 [Rx] Allergies/Adverse Reactions: 3 Allergy/AdvReac Type Severity Reaction Status Date / Time atorvastatin Allergy Rash Verified 08/29/17 17:09 Certification: Further, I certify that my clinical findings support that this patient is homebound (i.e. absences from home require considerable and taxing effort and are for medical reasons or mormonism services or infrequently or short duration when for other reasons) because: Homebound Reason: Patient requires assistance of a person or device to safely leave home Attestation: My signature below is to certify that this patient is under my care and that I, or nurse practitioner, or a physician's dental assistant teacher working with me, has a face-to -face encounter with this patient.
--- NOTE | 2017-09-06 15:25 | Discharge Summary ---
Orders not resulted at time of discharge: Pending orders 09/01/17 09:35 Culture,Blood [BC] Stat 09/01/17 09:42 Culture,Blood,Additional [BC] Stat 09/02/17 19:10 Culture,Blood [BC] Routine Date of Encounter: 09/06/17 Time of Encounter: 13:00 - Discharge Diagnosis (1) Bacteremia Priority: Primary Status: Acute Assessment and Plan: Likely due to osteomyelitis Due to MSSA seen in blood cultuers 08/29 and 08/30 (and also seen in wound culture ). - Continue cefazolin - Need blood cultures negative for 48 hours prior to picc placement - likely 6 weeks of antibiotics - Bood cultures 09/01: no growth, will follow final results. - May need LAURA prior to discharge. (TTE was negative for any vegitation) 09/06: Day #7 of 42 IV Ancef 2 g IV every 8 hours PICC line placed today. Discussed with infectious disease no LAURA needed. (2) Osteomyelitis Priority: Primary Status: Acute Assessment and Plan: OM secondary to infection of right long finger. S/p amputation on 08/30. Patient clinically doing well. Vital signs are stable and he is afebrile. He has no leukocytosis. 08/29 blood cultures and Repeat blood cultures from 08/30 also showed GPC - note these samples were obtained prior to finger amputation. Will d/w ID at what point to repeat blood cultures. - ID consulted, recommendations appreciated. - Initial blood cultures grew MSSA on 08/29 and 08/30. likely the causitive organism. - Follow-up repeat cultures, NGTD - Continue Ancef 2,000 mg Q8H. 09/06: Awaiting LAURA and PICC line. Pt will continue on Ancef every 8 hours 2 g , as directed by infectious disease. Follow-up with ID on 09/20/2017. Day #7 of 42 abx. Qualifiers: Osteomyelitis type: unspecified type Osteomyelitis location: hand Laterality: right Qualified Code(s): M86.9 - Osteomyelitis, unspecified (3) Anemia Priority: Secondary Status: Acute Assessment and Plan: Stable Qualifiers: Anemia type: unspecified type Qualified Code(s): D64.9 - Anemia, unspecified (4) DVT prophylaxis Priority: Secondary Status: Acute Assessment and Plan: SCD (5) Hypertension Priority: Secondary Status: Chronic Assessment and Plan: Continue home medications. Qualifiers: Hypertension type: essential hypertension Qualified Code(s): I10 - Essential (primary) hypertension (6) Hyperlipidemia Priority: Secondary Status: Chronic Assessment and Plan: Continue home medications. Qualifiers: Hyperlipidemia type: unspecified Qualified Code(s): E78.5 - Hyperlipidemia , unspecified (7) Diabetes Priority: Secondary Status: Acute Assessment and Plan: ISS AC Diabetic diet Improved after adding basal insulin 09/06: Reasonable glycemic control Qualifiers: Diabetes mellitus type: type 2 Diabetes mellitus fci insulin use: unspecified rodent exterminator insulin use status Diabetes mellitus complication status : with unspecified complications Qualified Code(s): E11.8 - Type 2 diabetes mellitus with unspecified complications Hospital course: Mr. Figueroa is a 67 year old male Mr. Figueroa is a 67 year old male who presents the emergency department via EMS from the [place]. Patient states that on July 13 he had a burn to his right middle finger which he did not notice due to severe peripheral neuropathy secondary to diabetes. he was treated at the [place] with antibiotics was no significant improvement of pain and swelling of his right middle finger. x-ray was reviewed and revealed osteomyelitis. the patient was started on empiric anti-biotics with Zosyn and vancomycin Surgery was consulted, and the patient be admitted to the hospital this time for further evaluation and management. 09/06: Patient did well during his hospital stay. He was started on antibiotics for MSSA bacteremia, currently day #7 of 42 day course of IV Ancef by way of PICC line Pt is stable for discharge. He will follow up with infectious disease on 2017. Weekly labs to include CBC, BMP, sedimentation rate and CRP. Home health nursing for IV care. 42 minutes spent on discharge and coordination of care Pt did have a transthoracic echocardiogram showing no evidence of endocarditis. A normal study. Discharge discussed with: patient - Time Spent with Patient Total time spent providing and/or coordinating discharge services: Greater than 30 minutes - Discharge Medications Prescriptions: ceFAZolin [Ancef] 2,000 mg IV Q8H #14 vial Home Medications: Aspirin [Lo-Dose Aspirin EC] 81 mg PO DAILY 08/29/17 [History] Cholecalciferol (D-3) [Vitamin D] 1,000 unit PO DAILY 08/29/17 [History] Clopidogrel [Plavix] 75 mg PO DAILY 08/29/17 [History] Gabapentin [Neurontin] 300 mg PO TID 08/29/17 [History] Lisinopril [Zestril] 40 mg PO DAILY 08/29/17 [History] Metoprolol [Lopressor] 25 mg PO DAILY 08/29/17 [History] Simvastatin [Zocor] 80 mg PO HS 08/29/17 [History] metFORMIN [Glucophage] 1,000 mg PO BIDWM 08/29/17 [History] ceFAZolin [Ancef] 2,000 mg IV Q8H #14 vial 09/01/17 [Rx] Allergies/Adverse Reactions: 3 Allergy/AdvReac Type Severity Reaction Status Date / Time atorvastatin Allergy Rash Verified 08/29/17 17:09 Date of admission: 08/29/17 21:46 [facility] Consults: 08/31/17 14:50 Consult to Infectious Diseases [CONS] Routine Consulting Provider: Infectious Disease Venessa Reason for Consult: Osteomyelitis Call Completed: No 09/06/17 11:01 Consult to Invasive Line Access Team [CONS] Routine Reason for Consult: home atb Line Type: Midline Discharging clinician: Greg Luna - Constitutional Vitals: Temp Pulse Resp BP Pulse Ox 98.0 F 56 18 173/83 98 09/06/17 11:57 09/06/17 11:57 09/06/17 11:57 09/06/17 11:57 09/06/17 11:57 General appearance: Present: A&O X 3 - Head Head exam: Present: atraumatic, normocephalic - Eye Eye exam: Present: PERRL, conjuntiva pink, sclera anicteric Pupils: Present: PERRL - Neck Neck exam general surgery: Present: supple, trachea midline. Absent: lymphadenopathy - Respiratory Respiratory exam: Present: CTAB. Absent: accessory muscle use, rales, rhonchi, wheezes - Cardiovascular Cardiovascular exam: Present: RRR, +S1, +S2. Absent: diastolic murmur, gallop, rubs, systolic murmur - GI/Abdominal GI/Abdominal exam: Present: normal bowel sounds, soft, no peritoneal signs. Absent: distended, tenderness - Extremities Exam Extremities exam: Present: warm, radial pulses palpable and symmetrical. Absent : calf tenderness, cyanotic, pedal edema Additional comments: Hand is dressed, dressing is clean and dry - Neurological Exam Neurological exam: Present: CN II-XII intact, oriented X3, no focal deficits. Absent: pronater drift, facial droop, speech deficit - Skin Skin exam: Present: dry, intact - Patient Status Disposition: Home Health Service Condition: Good Overall status at discharge: patient is progressing back to baseline - Discharge Instructions Follow Up With: [facility] [Outside] Sheron Harmon PAC [Physician Heading And Priming Operator] - 09/07/17 1:00 pm Elaina Grant, CENTRAL LAB TECHNICIAN [Advanced Practice Nurse] - 09/20/17 9:00 am Additional Instructions: CBC, BMP, ESR and CRP every Tuesday while on IV Ancef - Diet and Activity Activity: as per physical therapy Diet: advance to your usual diet - VTE Documentation of Mechanical Device: Intermittent pneumatic compression device
--- NOTE | 2017-09-06 16:44 | Orthopedics Progress Note ---
Date of Encounter: 09/06/17 Time of Encounter: 13:15 - Assessment and Plan (1) Osteomyelitis Current Visit: Yes Status: Acute POD#7 - s/p right long finger amputation 08/30/17 Postop dressings removed today. Incision healing appropriately. ROM as tolerated. Begin daily wound care washing with soap/water daily and reapply bulky gauze dressing. ID following for antibiotic guidance. Patient chose IV cefazolin q 8 hrs upon discharge with PICC. Continue to elevate hand, ROM as tolerated. No heavy lifting Will follow up with Sheron Harmon PA-C in [facility] office on 09/14/17 at 11:30am. Qualifiers: Osteomyelitis type: unspecified type Osteomyelitis location: hand Laterality: right Qualified Code(s): M86.9 - Osteomyelitis, unspecified Subjective Principal diagnosis: POD#7 s/p right long finger amputation 08/30/17 Interval history: Patient doing well today with no concerns at this time. No pain to surgical hand. States he has been working on moving his fingers. Denies any new drainage or issues with dressings. Objective Vital signs: Vital Signs Temp Pulse Resp BP Pulse Ox 09/06/17 16:17 98.3 F 80 18 135/76 93 09/06/17 11:57 98.0 F 56 18 173/83 98 09/06/17 06:52 98.0 F 58 18 154/81 99 09/06/17 04:22 98.0 F 56 15 142/76 97 09/05/17 18:51 98.9 F 58 15 130/68 99 Intake and Output 09/06/17 09/06/17 09/06/17 07:59 15:59 23:59 Intake Total 100 / 100 240 / 240 Output Total 850 / 850 Balance -750 / -750 240 / 240 Intake: IV Fluids 100 / 100 Ancef 2,000 MG In 0.9 % Sodium 100 / 100 Chloride 100 ML @ 200 mls/hr IVPB Q8H COUNT INCLUDES THE [facility] Rx#:[id number] Oral 0 / 0 240 / 240 Output: Urine 850 / 850 Other: Meal NPO Percent of Meal Consumed 100% Weight 96.8 kg Blood Glucose* 164 221 Patient Weight 09/06/17 23:59 Weight 96.8 kg Incision: swollen (postoperative dressings removed. incision is healing appropriately with no erythema or drainage. Sutures intact. Moderate swelling to long finger. Minimal ROM at 3rd MP joint. grossly NV intact, brisk cap refill to other fingers.) - Labs CBC & BMP: 09/06/17 05:31 09/06/17 05:31 Labs: Abnormal lab results RBC 4.04 M/mcL (4.19-5.50) L 09/06/17 05:31 Hgb 12.6 g/dL (12.9-16.9) L 09/06/17 05:31 Hct 36.2 % (37.5-50.1) L 09/06/17 05:31 Nucleated RBCs/100 WBC 0.2 /100 WBC (0) H 09/01/17 07:42 ESR 53 mm/hr (0-10) H 08/31/17 05:20 BUN 27 mg/dL (8-23) H 09/06/17 05:31 Creatinine 0.66 mg/dL (0.70-1.30) L 09/06/17 05:31 BUN/Creatinine Ratio 41 (6-26) H 09/06/17 05:31 Glucose 170 mg/dL (70-105) H 09/06/17 05:31 POC Glucose 164 mg/dL (70-99) H 09/06/17 12:30 Hemoglobin A1c 6.6 % (-5.6) H 08/30/17 06:27 AST 10 Units/L (13-39) L 08/30/17 04:49 C-Reactive Protein 72 mg/L (Less than 10) H 08/31/17 05:20 Serum Total Protein 6.3 g/dL (6.4-8.9) L 08/30/17 04:49 Albumin 3.2 g/dL (3.5-5.7) L 08/30/17 04:49 Albumin/Globulin Ratio 1.0 (1.1-2.2) L 08/30/17 04:49 Urine Glucose (UA) 100 mg/dL (Normal) H 08/30/17 04:56 Staphylococcus sp PCR DETECTED (Not Detect) A 08/29/17 17:20 Staph aureus (PCR) DETECTED (Not Detect) A 08/29/17 17:20 - VTE Documentation of Mechanical Device: Intermittent pneumatic compression device Consult Discharge Plan - Plan Additional Instructions: CBC, BMP, ESR and CRP every Tuesday while on IV Ancef Referrals: Sheron Harmon, MYLENE [Physician Wool Handler] - 09/14/17 11:30 am Elaina Grant PAPER BAG MAKER [Advanced Practice Nurse] - 09/20/17 9:00 am Prescriptions: ceFAZolin [Ancef] 2,000 mg IV Q8H #14 vial
--- NOTE | 2017-09-06 17:10 | Operative Note ---
Date of procedure: 08/30/17 Pre-op diagnosis: Right long finger infection w/ open wound and distal phalanx osteomyelitis Post-op diagnosis: same Procedure: Right long finger amputation through the proximal interphalangeal joint level Anesthesia: HAILY Surgeon: Eleazar Guadarrama Was there an anesthetic assistant present: No Estimated blood loss (cc): 10 Tourniquet Time (Minutes): 0 Specimen: Pathology and microbiology Condition: stable Disposition: PACU Procedure in Detail: The patient received IV antibiotics on the floor, was brought into the operating room and placed on the OR table in supine position with the affected extremity on a hand table. A sign in was performed. The patient underwent general anesthesia, a tourniquet was placed on his right arm arm close to the axilla. The right upper extremity was prepped and draped in usual sterile fashion. A timeout was performed. The patient had a minus of the right long finger distal phalanx. The swelling soft tissue was opened and excoriating proximally. A sharp fishmouth incision was made on the long finger, with the proximal end of the incision at the level of the base of P2, and the distal flaps just proximal to the open skin, near the level of the base of P2. Sharply dissected down to the bone. There is good brisk bleeding from the skin circumferentially. A bone cutter was then used to cut through the shaft of the middle phalanx. Cultures were taken of the exposed bone. Separate cultures were also taken of the amputated digit, opening of the distal phalanx where there was necrotic bone. The amputation was sent off as a pathology specimen. This amputation level was at the base of the middle phalanx, just distal to the insertion of the flexor digitorum superficialis slips. Unfortunately there was not sufficient soft tissue coverage. I had to go back down and disarticulate the proximal interphalangeal joint. The head of the proximal phalanx was lightly decorticated with a rongeur followed by a rasp. The neurovascular bundles were dissected out, pulled on, cauterized with the bipolar and then cut allowing them to retract into the soft tissue. The wound was copiously irrigated with normal saline, and we obtained hemostasis with bipolar cautery. The volar skin flap was then brought up and closed dorsally with a 5-0 nylon simple sutures, making sure there were no dog- ears, excising as necessary. The tip appeared well perfused. Fluffy sterile dressings were applied, followed by a light Coban dressing. The patient was extubated and taken to the recovery room in stable condition.
[2017-09-06] MEDS ORDERED: Insulin LISPRO 300 UNITS/3 ML VIAL SQ SCH (21:00)
[2017-09-06] MEDS: Insulin DETEMIR 100 UNIT/ML X5UNITS SQ SCH (21:19)
[2017-09-07] MEDS: ceFAZolin 2,000 MG in 0.9 % Sodium Chloride 100 ML IVPB SCH ×2 (06:02→13:04)
[2017-09-07] MEDS: Cholecalciferol (D-3) 1,000 UNIT TABLET PO SCH (08:16)
[2017-09-07] MEDS: Lisinopril 20 MG TABLET PO SCH (08:16)
[2017-09-07] MEDS: Gabapentin 300 MG CAPSULE PO SCH (08:16)
[2017-09-07] MEDS: Aspirin Enteric Coated 81 MG Tablet PO SCH (08:16)
[2017-09-07] MEDS: Insulin LISPRO 300 UNITS/3 ML VIAL SQ SCH ×2 (08:23→11:44)
[2017-09-07 11:22] VITALS: BP 154/68
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
--- NOTE | 2017-09-07 15:23 | Internal Med Progress Note ---
Date of Encounter: 09/07/17 Time of Encounter: 10:00 - Assessment and plan (1) Bacteremia Status: Acute Assessment and plan: Likely due to osteomyelitis Due to MSSA seen in blood cultuers 08/29 and 08/30 (and also seen in wound culture ). - Continue cefazolin - Need blood cultures negative for 48 hours prior to picc placement - likely 6 weeks of antibiotics - Bood cultures 09/01: no growth, will follow final results. - May need LAURA prior to discharge. (TTE was negative for any vegitation) 09/06: Day #7 of 42 IV Ancef 2 g IV every 8 hours PICC line placed today. Discussed with infectious disease no LAURA needed. 09/06: Day #8 of 42 days IV Ancef. Discharge today. See discharge summary. (2) Osteomyelitis Status: Acute Assessment and plan: OM secondary to infection of right long finger. S/p amputation on 08/30. Patient clinically doing well. Vital signs are stable and he is afebrile. He has no leukocytosis. 08/29 blood cultures and Repeat blood cultures from 08/30 also showed GPC - note these samples were obtained prior to finger amputation. Will d/w ID at what point to repeat blood cultures. - ID consulted, recommendations appreciated. - Initial blood cultures grew MSSA on 08/29 and 08/30. likely the causitive organism. - Follow-up repeat cultures, NGTD - Continue Ancef 2,000 mg Q8H. 09/06: Awaiting LAURA and PICC line. Pt will continue on Ancef every 8 hours 2 g , as directed by infectious disease. Follow-up with ID on 09/20/2017. Day #7 of 42 abx. 09/07: See above Qualifiers: Osteomyelitis type: unspecified type Osteomyelitis location: hand Laterality: right Qualified Code(s): M86.9 - Osteomyelitis, unspecified (3) Anemia Status: Acute Assessment and plan: Stable Qualifiers: Anemia type: unspecified type Qualified Code(s): D64.9 - Anemia, unspecified (4) DVT prophylaxis Status: Acute (5) Hypertension Status: Chronic Assessment and plan: Continue home medications. Qualifiers: Hypertension type: essential hypertension Qualified Code(s): I10 - Essential (primary) hypertension (6) Hyperlipidemia Status: Chronic Assessment and plan: Continue home medications. 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 States he wants to go home. Awaiting LAURA and PICC line placement for home antibiotics. No other complaints. No chest pain or shortness of breath. No nausea, vomiting, diarrhea. No fevers or chills. 09/07: LAURA canceled. PICC line placed. Patient arrange for discharge. See my full dictated discharge summary done on 09/06/2016. Patient remained in hospital 1 additional day to assist with arrangements for outpatient infusion by the [facility] - Constitutional Vitals: Temp Pulse Resp BP Pulse Ox 98.3 F 123 16 154/68 97 09/07/17 11:15 09/07/17 11:15 09/07/17 11:15 09/07/17 11:15 09/07/17 11:15 General appearance: Present: A&O X 3 - Head Head exam: Present: atraumatic, normocephalic - Eye Eye exam: Present: PERRL, conjuntiva pink, sclera anicteric Pupils: Present: PERRL - Neck Neck exam general surgery: Present: supple, trachea midline. Absent: lymphadenopathy - Respiratory Respiratory exam: Present: CTAB. Absent: accessory muscle use, rales, rhonchi, wheezes - Cardiovascular Cardiovascular exam: Present: RRR, +S1, +S2. Absent: diastolic murmur, gallop, rubs, systolic murmur - GI/Abdominal GI/Abdominal exam: Present: normal bowel sounds, soft, no peritoneal signs. Absent: distended, tenderness - Extremities Exam Extremities exam: Present: warm, radial pulses palpable and symmetrical. Absent : calf tenderness, cyanotic, pedal edema Additional comments: Right hand is dressed - Neurological Exam Neurological exam: Present: CN II-XII intact, oriented X3, no focal deficits. Absent: pronater drift, facial droop, speech deficit - Skin Skin exam: Present: dry, intact Internal Medicine: Result - Labs CBC & Chem 7: 09/06/17 05:31 09/06/17 05:31 - ABG Interpretation ABG results: PT/INR, D-dimer PT 12.1 Seconds (9.4-12.1) 08/29/17 17:23 - VTE Documentation of Mechanical Device: Intermittent pneumatic compression device Consult Discharge Plan - Plan Additional Instructions: CBC, BMP, ESR and CRP every Tuesday while on IV Ancef Referrals: Sheron Harmon, PAC [Physician Medical Technologist Microbiology] - 09/14/17 11:30 am Elaina Grant CRIMINAL JUSTICE PROFESSOR [Advanced Practice Nurse] - 09/20/17 9:00 am Prescriptions: ceFAZolin [Ancef] 2,000 mg IV Q8H #14 vial
== END 2017-09-07 13:58 | disposition home health service (06) | DRG 513 ==
LOC: 3ANU 16:15 → EMEROO 16:15 → 3ANU 19:28 → SUATTDRO 21:46
PROVIDERS: ADMIT Internal Medicine Nephrology; ATTEND Student in an Organized Health Care Education/Training Program